=== PATIENT | male | born 1945 | race Caucasian/White ===

== ENCOUNTER 2017-09-30 13:47 | Inpatient (IN) | payer MEDICARE, MEDICAID ==
--- NOTE | 2017-09-30 16:32 | ED Physician Chart ---
ED Chief Complaint/HPI - Patient Information Date Seen:: 09/30/17 Time Seen:: 16:31 Chief Complaint:: HYPOTENSION and decreased alertness. History of Present Illness:: THIS 72 YEAR OLD MALE WAS SENT TO THE ER FROM HIS NURSING FACILITY DUE TO LOW BLOOD PRESSURE AND GENERALIZED WEAKNESS WHEN HE ARRIVED IN THE ER HE WAS AWAKE BUT UNRESPONSIVE TO VERBAL QUESTION AND UNABLE TO EXECUTE SIMPLE COMMANDS. HE WAS COMPLETELY NONVERBAL. HE WAS ACCOMPANIED BY PAPERWORK THAT NOTED A LOW BLOOD PRESSURE AND POOR RESPONSIVENESS. Allergies:: Allergies Allergy/AdvReac Type Severity Reaction Status Date / Time No Known Allergies Allergy Verified 09/30/17 15:47 The patient is unable to provide in HPI. When asked his name he says [place]. He does not follow simple commands such as open your eyes, open your mouth or squeeze my fingers. Vitals:: Vital Signs - 8 hr 09/30/17 09/30/17 15:47 16:04 Temp 99.4 F 98.7 F HR 126 113 RR 23 17 BP 104/57 121/70 O2 Sat % 96 98 ED Past Medical History - Past Medical History Past Medical History: HTN, DM, CAD, CHF, Dyslipidemia, Seizures, Dementia Family History: Heart disease, HTN, Other (encephalopathy. Hyperlipidemia. CHF. Atrial fibrillation. Hyperlipidemia.) Social History: Non Smoker, No Alcohol, No Drug Use, Care Facility Surgical History: PEG/GTube, other (surgical history unknown) Psychiatricy History: Schizophrenia, Bipolar, Dementia, Other (COPD, CHF, HTN, ENCEPHALOPATHY, ATRIAL FIBRILLATION, HYPERLIPIDEMIA) Family Medical History - Family Member Mother History Unknown: Yes ED Physical Exam - Physical Examination General/Constitutional: Well-developed, well-nourished Other Gen/Cons comments:: Patient appears to have chills and is minimally responsive to verbal commands and questions. Head: Atraumatic Eyes: Lids, conjuctiva normal, PERRL Skin: Nl inspection, No rash, No skin lesions, No ecchymosis, No lymphadenopathy ENMT: External ears, nose nl, Nasal exam nl Other ENMT comments:: DRY ORAL MUCOSA, GAG REFLEX INTACT Neck: No JVD, No bruit, No mass, No stridor Respiratory: Nl effort/Exclusion Other Respiratory comments:: PATIENT HAS BILATERAL RHONCHI IN THE ONE BASIS. ED Labs/Radiology/EKG Results - Radiology Results Results: Single view chest x-ray: Underlying cardiomegaly. No CHF. Increased interstitial lung markings diffusely. Calcifications within the aortic arch. No mediastinal widening. No pneumothorax. No areas of pulmonary consolidation or infiltrate. Impression: No acute cardiopulmonary findings. ED Assessment - Assessment General Assessment: CASE SUMMARY: THE 72-YEAR-OLD MALE WAS SENT TO THE EMERGENCY DEPARTMENT FROM HIS NURSING FACILITY ASSESSMENT OF HYPOTENSION. HE WAS HYPOTENSIVE UPON ARRIVAL RESUSCITATION WITH NORMAL SALINE WAS STARTED. THE GOAL WAS TO ADMINISTER 30 ML PER KILOGRAM OF NORMAL SALINE. THIS RESULTED IN A SIGNIFICANT INCREASE IN BLOOD PRESSURE. HE RETURNED TO THE NORMAL RANGE OF 120 OVER 90. BECAUSE OF THE HYPOTENSION WAS PRESUMED TO BE SEPSIS THERE WAS NO EVIDENCE OF FLUID LOSS OR BLEEDING. PATIENT WAS ALSO TREATED WITH CEFTRIAXONE AND A SET FOR MYSELF. PATIENT WAS ADMITTED TO A MEDICAL BED CONTINUATION OF RESUSCITATION AND SEARCH FOR THE SOURCE OF INFECTION. HIS CHEST X-RAY WAS CLEAR BUT THE LACTIC ACID WAS WITHIN THE SEPSIS RANGE. RESULTS OF THE URINALYSIS WERE PENDING AT THE TIME OF THE PATIENT'S ADMISSION. ADMITTED IN IMPROVED CONDITION. MDM DDX SEPSIS: NOT PNEUMONIA BASED ON EVALUATION OF THE CHEST X-RAY AND THE PHYSICAL EXAMINATION. NOT CELLULITIS BASED ON PHYSICAL EXAMINATION. NOT NECROTIZING FASCIITIS BASED ON PHYSICAL EXAMINATION. ALTHOUGH THE SOURCE OF INFECTION WAS NOT CONFIRMED IT WAS MY JUDGMENT THAT THE MOST LIKELY CAUSE WAS URINARY TRACT INFECTION. Critical Care Time: 60 MINUTES Excludes all billable procedures: Yes This condition life threatening/high prob of deterioration: Yes Assessment/Comments:: THE PATIENT ARRIVED HYPOTENSIVE AND FLUID RESUSCITATION WITH NORMAL SALINE WAS BEGUN IMMEDIATELY. THE GOAL WAS TO ADMINISTER 30 ML KILOGRAM. THE PATIENT RESPONDED IMMEDIATELY WITH INCREASE IN BLOOD PRESSURE AND ALERTNESS. PATIENT RECEIVED A TOTAL OF 2 L OF NORMAL SALINE PRIOR TO ADMISSION. ED Septic Shock - . Is Septic Shock (SBP<90, OR Lactate>4 mmol\L) present?: No - <6hrs of presentation: Vital Signs: Vital Signs - 8 hr 09/30/17 09/30/17 15:47 16:04 Temp 99.4 F 98.7 F HR 126 113 RR 23 17 BP 104/57 121/70 O2 Sat % 96 98 EKG Interpretation: No ST elevation ED Reassessment (Disposition) - Reassessment Reassessment Condition:: Improved - Diagnosis Diagnosis:: SEPSIS WITH HYPOTENSION (IMPROVE) - Patient Disposition Condition at Disposition:: Improved ED Discharge Plan - Patient Disposition Admit/Discharge/Transfer: Acute Care w/in this hosp Condition at Disposition: Improved
[2017-09-30 17:54] LABS: % BASOPHILS 0.4 % (0.0-2.0); % EOSINOPHILS 0.3 % (0.0-5.0); % LYMPHOCYTES 8.1 % (20.0-50.0); % MONOCYTES 8.2 % (2.0-10.0); HEMATOCRIT 43.1 % (41.0-60); HEMOGLOBIN 14.1 gm/dL (12-16); LYMPHOCYTE ABSOLUTE 0.8 Th/cmm (1.5-3.0); MEAN CELL VOLUME 97.5 fl (80-99); MEAN CORPUSCULAR HEMOGLOBIN 31.8 pg (27.0-31.0); MEAN CORPUSCULAR HGB CONC 32.6 pg (28.0-36.0); MEAN PLATELET VOLUME 11.4 fl; MONOCYTE ABSOLUTE 0.8 Th/cmm (0.3-1.0); NEUTROPHILE ABSOLUTE 8.7 Th/cmm (1.8-8.0); PLATELET COUNT 233 Th/cmm (150-400); RED BLOOD COUNT 4.42 Mil/cmm (3.80-5.80); WHITE BLOOD COUNT 10.3 Th/cmm (4.8-10.8)
[2017-09-30] MEDS ORDERED: Sodium Chloride 0.9% 1,000 ML IV ONE ×3 (17:56→22:48)
[2017-09-30 18:15] LABS: ALB/GLOB RATIO 0.9 (1.0-1.8); ALBUMIN 3.7 gm/dL (4.2-5.5); ALKALINE PHOSPHATASE 99 U/L (34-104); ANION GAP 18.6 (7.0-16.0); BILIRUBIN,TOTAL 0.4 mg/dL (0.3-1.0); BUN - UREA NITROGEN 26 mg/dL (7-25); CALCIUM SERUM 9.6 mg/dL (8.6-10.3); CARBON DIOXIDE 20.2 mEq/L (21.0-31.0); CHLORIDE 106 mEq/L (98-107); CREATININE - SERUM 1.3 mg/dL (0.7-1.3); GLUCOSE 149 mg/dL (70-105); POTASSIUM SERUM 3.8 mEq/L (3.5-5.1); SGOT 26 U/L (13-39); SGPT/ALT 16 U/L (7-52); SODIUM SERUM 141 mEq/L (136-145); TOTAL PROTEIN,SERUM 7.7 gm/dL (6.0-8.3)
[2017-09-30 18:47] LABS: URINE MICROSCOPIC INDICATED? YES; URINE SOURCE RANDOM
[2017-09-30 18:48] LABS: URINE BILIRUBIN NEGATIVE (NEGATIVE); URINE BLOOD LARGE (NEGATIVE); URINE GLUCOSE (UA) NEGATIVE (NEGATIVE); URINE KETONE TRACE mg/dL (NEGATIVE); URINE LEUKOCYTE ESTERASE NEGATIVE (NEGATIVE); URINE NITRATE NEGATIVE (NEGATIVE); URINE PH 5.5 (4.6 - 8.0); URINE PROTEIN TRACE mg/dL (NEGATIVE); URINE UROBILINOGEN 0.2 E.U./dL (0.2 - 1.0)
[2017-09-30] MEDS ORDERED: Ciprofloxacin 400mg Premix PB 400 MG/200 ML BAG IV ONE ×2 (18:48→19:57)
[2017-09-30 18:50] LABS: URINE COLOR YELLOW
[2017-09-30 18:51] LABS: URINE CLARITY HAZY (CLEAR)
[2017-09-30 18:54] LABS: URINE BACTERIA OCCASIONAL /hpf (NONE SEEN); URINE EPITHELIAL CELLS RARE /lpf (FEW); URINE WBC 0-2 /hpf (0-5)
[2017-09-30] MEDS ORDERED: cefTRIAXone 2 GM in Sodium Chloride 0.9% 100 ML IV ONE (19:47)
[2017-09-30] MEDS ORDERED: metroNIDAZOLE 500mg/NS 100mL 500 MG/100 ML BAG IV ONE ×2 (21:28→21:34)
[2017-09-30 22:23] LABS: ALB/GLOB RATIO 0.9 (1.0-1.8); ALBUMIN 3.6 gm/dL (4.2-5.5); BILIRUBIN,DIRECT 0.1 mg/dL (0.0-0.2); BILIRUBIN,TOTAL 0.4 mg/dL (0.3-1.0); TOTAL PROTEIN,SERUM 7.7 gm/dL (6.0-8.3)
--- NOTE | 2017-09-30 23:09 | ER Physician Documentation ---
DATE OF SERVICE: 09/30/2017 ADDENDUM HISTORY OF PRESENT ILLNESS: A 72-year-old male patient. Dr. Vigil was here until about close to 8 o'clock and he has done a partial workup and treatment on this patient, more is needed to be done and I came on duty at 7 o'clock sharp, a minute or two before that and the patient's were gradually seen one by one and this patient had lactic acidosis septicemia. The exact cause of the lactic acidosis and the patient had a temperature of 102 degrees Fahrenheit and the exact etiology is not seen. The back shows some area of redness on the right lateral aspect. The patient has some redness over the heels, one needs to rule out if the patient has any evidence of any osteomyelitis into the ankles and that may need to be ruled out by getting an MRI to be done, but we will leave it to the primary care doctor of this patient. The patient was examined. All the history, etc., was already done by Dr. Vigil. I got the lab results showing 10.3 as white count, hemoglobin to be 14.1, hematocrit 43.1, platelet count to be 233,000, neutrophils 83, lymphocytes 8.1, monocytes 8.2, eosinophils 0.3, and basophils 0.4. The patient had a large amount of blood in the urine and I am not sure where the blood came from, whether it was traumatic or whether he was trying to pull it, or whether it got pulled up and leukocyte, nitrite, and leukocyte esterase were all found to be negative. WBCs were 10-25, so the patient definitely has some degree of urinary tract infection. The first set of lactic acid was 5.85 and then the four subsequent ones came down to 2.33. Then 2 liters of fluid were given, 500 mL more has been ordered by me and then 125 mL an hour and Dr. Vigil has given ceftriaxone and Cipro, both covering gram-negative organisms and Flagyl was added by me to cover anaerobic organism and to cover for gram-positive organism. Vancomycin has been given. So, I do not think that the patient would need four antibiotics to be given. Either ceftriaxone or Cipro can be given. Cipro would be better. Cipro, Flagyl, and vancomycin could be given and any other antibiotic that the patient's primary care physician decides to be given, will be given to the patient. The patient has some Alzheimer's disease. The patient has been on Lipitor. The patient has been on Depakene 500 mg 10 mL p.o. 3 times a day for a seizure disorder, lactulose 20 grams that means 30 mL three times a day, multivitamin, vitamin C, Cordarone 20 mg p.o. daily, and one thing to note Cordarone is a liver toxic drug, so we will get the liver function panel done and sometimes the patient can in a few days with a liver toxicity secondary to Cordarone, so that is to be taken into consideration. The patient also has atrial fibrillation and converts to a sinus rhythm with atrial fibrillation. I believe we will stop the Cordarone at the present moment and substitute with Cardizem, Cordarone to be stopped, and ammonia level and valproic acid level monthly second Saturday. I saw the rhythm strips that changed from sinus to atrial fibrillation. The patient had some lab workup done. At one point, the temperature was 102, few minutes ago, temperature was 99.4 when the patient came here at 1348 hours, and now it is about 9:35 p.m., which is 21:35 p.m. showing the temperature to be 102. When he came, it was 99.4, pulse is 126, respirations 23, blood pressure 104/51, and oxygen saturation was 96%. The patient's other histories were essentially found to be benign and negative. The patient is a full code, according to the notes, it came with the patient. The patient is uncommunicative, hence no history can be obtained other than whatever came with the patient. The patient's paper on physical exam, the patient is of the stated age, uncommunicative, shaking, nervous, and on palpation of the abdomen, one can see that he is feeling some pain whether he has some peritonitis in the belly because the patient had a previous history of G-tube and a part of the G-tube site is partially open suggesting that the patient may have some peritonitis and hence peritonitis need to be ruled out, IR or somebody to do a peritoneal tap to see if there are any organisms. MRSA swab needs to be done. Vitamin D deficiency was detected and the patient should get some vitamin D. Valproic acid level was 54, that is found to be low. More valproic acid will be needed for him. For his seizure level, ammonia level is 38.6. So, we will get some more tests to be done at the present moment and then when we get more lab results we will let you know. JOB# [id number]
[2017-09-30] MEDS ORDERED: Ciprofloxacin 200mg Premix PB 200 MG/100 ML BAG IV SCH (23:45)
[2017-09-30] MEDS ORDERED: cefTRIAXone 2 GM in Sodium Chloride 0.9% 100 ML IV SCH (23:45)
[2017-09-30] MEDS ORDERED: cefTRIAXone 1 GM in Sodium Chloride 0.9% 50 ML IV SCH (23:45)
[2017-10-01] MEDS ORDERED: metroNIDAZOLE 500mg/NS 100mL 500 MG/100 ML BAG IV SCH
[2017-10-01] MEDS ORDERED: Influenza Vaccine 0.5 mL Syr IM ONE (01:43)
[2017-10-01] MEDS ORDERED: Pneumococcal Vaccine 0.5 mL Vial IM ONE (01:43)
[2017-10-01] MEDS: metroNIDAZOLE 500mg/NS 100mL 500 MG/100 ML BAG IV SCH ×3 (05:25→17:49)
--- NOTE | 2017-10-01 06:43 | History and Physical ---
History of Present Illness - HPI Chief Complaint: hypotension, decreased alertness HPI: 72y/o male who was transferred to [facility] ER from SNF for decreased wakefulness, increased fatigue and hypotension. Patient has a past medical history of the following: parkinson's disease, hyperlipidemia, seizure disorder, atrial fibrillation, g tube placement, hypertension, diabetes mellits , CAD, CHF, dyslipidemia, encephalopathy, pacemaker placement, schizophrenia, bipolar disorder, dementia While in the ER, initial labwork revealed lactic acid 5.85 WBC 10.3 H/H 14.1/43.1 platelets 233K N83 L8 M8 E0.3 B0.4 Na 141 K 3.8 Bun/Cr 26/1.3 Patient was subsequently admitted for possible sepsis vs urosepsis, lactic acidosis, hematuria. Vital Signs: Last Vital Signs Temp 99.0 F 10/01/17 05:00 Pulse 52 10/01/17 05:00 Resp 16 10/01/17 05:00 BP 127/54 10/01/17 05:00 Pulse Ox 97 10/01/17 05:00 Past Medical History Cardiovascular: Report: AFIB, CAD, CHF, HTN, Hyperlipidemia Pulmonary: Report: No Pertinent Hx MOLDER INFLATED BALL: Report: Dementia, Other (Parkinson's, Encephalopathy) GI: Report: Other (dysphagia, S/P g tube placement) Psych: Report: Bipolar, Depression, Schizophrenia Musculoskeletal: Report: No Pertinent Hx Rheumatologic: Report: No pertinent Hx Infectious Disease: Report: No Pertinent Hx Renal/: Report: No Pertinent Hx Endocrine: Report: Diabetes Dermatology: Report: No Pertinent Hx - Past Surgical History Past Surgical History: Other (pacemaker placement, gtube placement) Family Medical History - Family Member Mother History Unknown: Yes Social History Smoke: No Alcohol: None Drugs: None Lives: Alone - Medications Home Medications: Home Medication Medication Instructions Recorded Type Amino Acids/Protein Hydrolys 30 ml PO BID 09/30/17 History [Pro-Stat Sugar Free 887 ml] Amiodarone [Cordarone] 200 mg PO DAILY 09/30/17 History Ascorbic Acid [Vitamin C] 500 mg PO DAILY 09/30/17 History Aspirin EC [Ecotrin] 81 mg PO DAILY 09/30/17 History Atorvastatin Calcium [Lipitor] 10 mg PO HS 09/30/17 History Donepezil Hcl [Aricept] 5 mg PO HS 09/30/17 History Lactulose 20 gm PO TID 09/30/17 History Multivitamin w/ Minerals 1 tab PO DAILY 09/30/17 History [Theragran M] Valproic Acid (As Sodium Salt) 500 mg PO TID 09/30/17 History [Depakene] - Allergies Allergies/Adverse Reactions: Allergies Allergy/AdvReac Type Severity Reaction Status Date / Time No Known Allergies Allergy Verified 09/30/17 15:47 Review of Systems - Review of Systems Constitutional: Report: No Significant Eyes: Report: No Significant ENT: Report: No Significant Respiratory: Report: No Significant Cardiovascular: Report: No Significant Gastrointestinal: Report: No Significant Genitourinary: Report: No Significant Musculoskeletal: Report: No Significant Skin: Report: No Significant Neurological: Report: No Significant Physical Exam - Physical Exam HEENT: Report: Ears Nose Throat within normal limits, Pharnyx within normal limits Neck: Report: Within normal limits Cardiovascular Systems: Report: +s1/s2 noted, Regular, Rate and Rhythm Respiratory: Report: Breath Sounds are within normal limits, Clear to Auscultation of lung yoo Abdomen: Report: Non-tender to palpation. Denies: Guarding - Assessment Assessment: Current Active Problems Problem Status Onset HYPOTENSIVE EPISODE WITH ALOC Acute Sepsis versus Urosepsis lactic acidosis hematuria posisble UTI Parkinson's Disease hyperlipidemia seizure disorder atrial fibrillation S/p G tube placement HTN DM CAD CHF dyslipidemia encephalopathy S/p pacemaker placement Schizophrenia Bipolar Disorder Dementia - Plan Plan: Blood Cultures Urine C&S ID Consult Dr Marlon Grewal Cardiology Consult Dr. Mikal Grewal ECHO CBC,CMP,TSH,BNP,Ammonia level Will continue home meds.
[2017-10-01 07:12] LABS: ANION GAP 9.2 (7.0-16.0); BUN - UREA NITROGEN 19 mg/dL (7-25); CALCIUM SERUM 8.2 mg/dL (8.6-10.3); CARBON DIOXIDE 22.1 mEq/L (21.0-31.0); CHLORIDE 113 mEq/L (98-107); CREATININE - SERUM 0.8 mg/dL (0.7-1.3); GLUCOSE 88 mg/dL (70-105); POTASSIUM SERUM 4.3 mEq/L (3.5-5.1); SODIUM SERUM 140 mEq/L (136-145)
[2017-10-01 07:40] LABS: HEMOGLOBIN 11.6 gm/dL (12-16); MEAN CELL VOLUME 96.1 fl (80-99); MEAN CORPUSCULAR HGB CONC 34.3 pg (28.0-36.0); WHITE BLOOD COUNT 13.3 Th/cmm (4.8-10.8)
[2017-10-01 07:41] LABS: % EOSINOPHILS 1.3 % (0.0-5.0); % LYMPHOCYTES 20.9 % (20.0-50.0); % MONOCYTES 9.8 % (2.0-10.0); BASOPHILE ABSOLUTE 0.1 Th/cumm (0-0.2); EOSINOPHILE ABSOLUTE 0.2 Th/cmm (0.1-0.4); HEMATOCRIT 33.7 % (41.0-60); LYMPHOCYTE ABSOLUTE 2.8 Th/cmm (1.5-3.0); MEAN PLATELET VOLUME 9.9 fl; MONOCYTE ABSOLUTE 1.3 Th/cmm (0.3-1.0); NEUTROPHILE ABSOLUTE 8.9 Th/cmm (1.8-8.0); PLATELET COUNT 203 Th/cmm (150-400); RED CELL DISTRIBUTION WIDTH 13.8 % (11.5-20.0)
--- NOTE | 2017-10-01 08:33 | Diagnostic Imaging Report ---
CHEST X-RAY: AP view INDICATION: Shortness of breath, possible sepsis COMPARISON: None FINDINGS: Increased interstitial lung markings are seen with increased left lower lung zone linear markings. No focal consolidation or effusions. There is a 3 mm calcified granuloma of the right apex. Heart size is normal. Degenerative changes of spine are noted. IMPRESSION: Increased left lower lung zone linear markings which may be due to subsegmental atelectasis or scarring, however, faint infiltrate cannot be excluded. Increased interstitial lung markings nonspecific and may be chronic. A marginal degree of congestion cannot be completely excluded. Clinical correlation is recommended. Atherosclerotic vascular disease.
[2017-10-01] MEDS ORDERED: Non-Formulary Item 1 EA (Amino Acids/Protein Hydrolys [Pro-Stat Sugar Free Liquid] 30 ML) PO SCH (09:00)
[2017-10-01] MEDS: Lactulose 10 Gm/15 mL 30mL UDC PO SCH ×3 (10:04→20:36)
[2017-10-01] MEDS: Multivitamin w/ Minerals Tab PO SCH (10:04)
[2017-10-01 13:22] LABS: INR 1.08 (0.5-1.4); PROTHROMBIN TIME (TEST) 11.2 SECONDS (9.5-11.5)
--- NOTE | 2017-10-01 19:07 | Cardiology ---
10/01/2017 ECHOCARDIOGRAM REPORT The patient of Dr. Valente Caballero. M-MODE ECHOCARDIOGRAM: Mitral valve: Anterior leaflet of mitral valve shows normal excursion, EF velocity. Posterior leaflet of the mitral valve shows normal excursion. Left ventricle posterior wall shows normal thickness excursion. Interventricular septum showed normal thickness excursion. Ejection fraction 60%. Left atrium normal. Aortic root shows normal dimension, normal excursion of aortic leaflets. CONCLUSION: Normal M-mode echo, ejection fraction 60%. 2D ECHO: Long axis view showed normal sized left ventricle with normal wall motion. Mitral valve shows normal excursion. Left atrium normal. Aortic root shows normal dimension, normal excursion of aortic leaflets. Short axis view of mitral valve normal. Short axis view of aortic valve normal. Apical four chamber view showed normal sized left ventricle, left atrium, right ventricle, right atrium, tricuspid and mitral valve. Ejection fraction 60%. CONCLUSION: Normal 2D echo, ejection fraction 60%. Doppler study shows normal antegrade flow across the mitral, tricuspid, and aortic valve. JOB# [id number]
[2017-10-01] MEDS ORDERED: cefTRIAXone 2 GM in Sodium Chloride 0.9% 100 ML IV SCH (20:00)
[2017-10-01] MEDS: Atorvastatin Calcium 10 MG TAB PO SCH (20:36)
[2017-10-01] MEDS ORDERED: Ciprofloxacin 200mg Premix PB 200 MG/100 ML BAG IV SCH (21:00)
--- NOTE | 2017-10-01 22:29 | Consultation ---
Consult Note - Consult Note Service Date: 10/01/17 Referring Physician: Valente Caballero Consult Note: PHYSICIAN Consultation Note: Date of Admission: 09/30/17 Purpose of Consultation: Sepsis. Chief Complaint: Patient SERVANDO REAL was admitted to location Medical/Surgical Unit I with SEPTICEMIA,SEPTIC SHOCK. History of Present Illness: 72 year old male with history of DM2, hyperlipidemia, Dementia, schizophrenia, bipolar d/o, parkinson's disease, HTN, atrial fibrillation, CAD, CHF, dyslipidemia, encephalopathy, pacemaker placement admitted for altered mental status with hypotension. On initial evaluation, his temperature was 99.4 degree F and it went up to 102.7 degree F. His WBC Count was 10,300 and it went up to 13,300. His lactic acid was also elevated, up to 5.85. Fluid resuscitation and IV antibiotic. and he did well. sepsis w/u was performed and ID consult was called for antibiotic management. Past Medical History: DM2, hyperlipidemia, Dementia, schizophrenia, bipolar d/o, parkinson's disease , HTN, atrial fibrillation, CAD, CHF, dyslipidemia, encephalopathy, pacemaker placement Diagnoses SEPSIS, UNSPECIFIED ORGANISM (09/30/17) TYPE 2 DIABETES MELLITUS WITHOUT COMPLICATIONS (09/30/17) HYPERLIPIDEMIA, UNSPECIFIED (09/30/17) ACIDOSIS (09/30/17) DEMENTIA IN OTH DISEASES CLASSD ELSWHR W/O BEHAVRL DISTURB (09/30/17) UNSPECIFIED DEMENTIA WITHOUT BEHAVIORAL DISTURBANCE (09/30/17) SCHIZOPHRENIA, UNSPECIFIED (09/30/17) BIPOLAR DISORDER, UNSPECIFIED (09/30/17) PARKINSON'S DISEASE (09/30/17) EPILEPSY, UNSP, NOT INTRACTABLE, WITHOUT STATUS EPILEPTICUS (09/30/17) ENCEPHALOPATHY, UNSPECIFIED (09/30/17) ESSENTIAL (PRIMARY) HYPERTENSION (09/30/17) ATHSCL HEART DISEASE OF [place] CORONARY ARTERY W/O ANG PCTRS (09/30/17) UNSPECIFIED ATRIAL FIBRILLATION (09/30/17) PERITONITIS, UNSPECIFIED (09/30/17) URINARY TRACT INFECTION, SITE NOT SPECIFIED (09/30/17) GASTROSTOMY STATUS (09/30/17) PRESENCE OF CARDIAC PACEMAKER (09/30/17) Allergies Allergy/AdvReac Type Severity Reaction Status Date / Time No Known Allergies Allergy Verified 09/30/17 15:47 Vital Signs Temp 98.6 F 10/01/17 20:00 Pulse 67 10/01/17 20:00 Resp 17 10/01/17 20:00 BP 125/48 10/01/17 20:00 Pulse Ox 95 10/01/17 20:00 Intake & Output 10/01/17 10/01/17 10/02/17 06:59 18:59 06:59 Intake Total 3750 370 Balance 3750 370 Weight (lbs) 78.97 kg 78.925 kg Intake: Intake, IV Amount 3750 250 Sodium Chloride 0.9% 1, 1000 000 ml @ Wide Open IV . Q0M ONE Rx#:[id number] Vancomycin HCl 1 gm In 250 Sodium Chloride 0.9% 250 ml @ 165 mls/hr IV Q12H [facility] Rx#:[id number] Vancomycin HCl 1 gm In 250 Sodium Chloride 0.9% 250 ml @ 165 mls/hr IV X1 ONE Rx#:[id number] metroNIDAZOLE 500mg/NS 100 100mL 500 mg In 100 ml @ 100 mls/hr IV Q6HR [facility] Rx #:[id number] Oral 120 Laboratory Results - last 24 hr 10/01/17 10/01/17 10/01/17 06:07 06:07 06:46 WBC 13.3 H RBC 3.50 L Hgb 11.6 L Hct 33.7 L D MCV 96.1 MCH 33.0 H MCHC Differential 34.3 RDW 13.8 Plt Count 203 MPV 9.9 Neutrophils % 67.0 Lymphocytes % 20.9 Monocytes % 9.8 Eosinophils % 1.3 Basophils % 1.0 PT INR Sodium 140 Potassium 4.3 Chloride 113 H Carbon Dioxide 22.1 Anion Gap 9.2 BUN 19 Creatinine 0.8 Est GFR ( Amer) TNP Est GFR (Non-Af Amer) TNP BUN/Creatinine Ratio 23.8 Glucose 88 Whole Bld Lactic Acid 0.69 Calcium 8.2 L Ammonia B-Natriuretic Peptide TSH 10/01/17 10/01/17 10/01/17 06:46 06:46 06:46 WBC RBC Hgb Hct MCV MCH MCHC Differential RDW Plt Count MPV Neutrophils % Lymphocytes % Monocytes % Eosinophils % Basophils % PT INR Sodium Potassium Chloride Carbon Dioxide Anion Gap BUN Creatinine Est GFR ( Amer) Est GFR (Non-Af Amer) BUN/Creatinine Ratio Glucose Whole Bld Lactic Acid Calcium Ammonia 41 B-Natriuretic Peptide 198.0 H TSH 0.90 10/01/17 13:06 WBC RBC Hgb Hct MCV MCH MCHC Differential RDW Plt Count MPV Neutrophils % Lymphocytes % Monocytes % Eosinophils % Basophils % PT 11.2 INR 1.08 Sodium Potassium Chloride Carbon Dioxide Anion Gap BUN Creatinine Est GFR ( Amer) Est GFR (Non-Af Amer) BUN/Creatinine Ratio Glucose Whole Bld Lactic Acid Calcium Ammonia B-Natriuretic Peptide TSH Home Medication Medication Instructions Recorded Type Amino Acids/Protein Hydrolys 30 ml PO BID 09/30/17 History [Pro-Stat Sugar Free 887 ml] Amiodarone [Cordarone] 200 mg PO DAILY 09/30/17 History Ascorbic Acid [Vitamin C] 500 mg PO DAILY 09/30/17 History Aspirin EC [Ecotrin] 81 mg PO DAILY 09/30/17 History Atorvastatin Calcium [Lipitor] 10 mg PO HS 09/30/17 History Donepezil Hcl [Aricept] 5 mg PO HS 09/30/17 History Lactulose 20 gm PO TID 09/30/17 History Multivitamin w/ Minerals 1 tab PO DAILY 09/30/17 History [Theragran M] Valproic Acid (As Sodium Salt) 500 mg PO TID 09/30/17 History [Depakene] Current Medications Generic Name Dose Route Start Last Admin Trade Name Lenny PRN Reason Stop Dose Admin Amiodarone HCl 200 mg 10/01/17 09:00 10/01/17 10:03 Cordarone PO 11/30/17 08:59 200 mg DAILY [facility] Administration Ascorbic Acid 500 mg 10/01/17 09:00 10/01/17 10:03 Vitamin C PO 11/30/17 08:59 500 mg DAILY [facility] Administration Aspirin 81 mg 10/01/17 09:00 10/01/17 10:03 Ecotrin PO 11/30/17 08:59 81 mg DAILY [facility] Administration Atorvastatin Calcium 10 mg 10/01/17 21:00 10/01/17 20:36 Lipitor PO 11/30/17 20:59 10 mg HS [facility] Administration Protocol Donepezil HCl 5 mg 10/01/17 21:00 10/01/17 20:36 Aricept PO 11/30/17 20:59 5 mg HS [facility] Administration Ceftriaxone Sodium 2 gm/ 100 mls @ 100 mls/hr 10/01/17 20:00 10/01/17 20:35 Sodium Chloride IV 11/30/17 19:59 100 mls/hr Q24H [facility] Administration Metronidazole 500 mg in 100 mls @ 100 mls/hr 10/01/17 02:00 10/01/17 17:49 Flagyl IV 11/30/17 01:59 Not Given Q6HR [facility] Vancomycin HCl 1 gm/ Sodium 250 mls @ 165 mls/hr 10/01/17 10:00 10/01/17 22: 26 Chloride IV 11/30/17 09:59 165 mls/hr Q12H [facility] Administration Lactulose 20 gm 10/01/17 09:00 10/01/17 20:36 Cephulac PO 11/30/17 08:59 20 gm TID [facility] Administration Miscellaneous 1 ea 10/01/17 06:34 Vancomycin Iv Per Pharmacy 11/30/17 06:33 PRN PRN PROTOCOL Valproate Sodium 500 mg 10/01/17 10:00 10/01/17 20:36 Depakene PO 11/30/17 09:59 500 mg TID [facility] Administration Warfarin Sodium 1 ea 10/01/17 12:25 Coumadin Per Pharmacy 11/30/17 12:24 PRN PRN RX MONITORING Protocol Review of Systems: A 12 point ROS was reviewed with the pertinent positive and negatives noted in the HPI. Social History Smoking Status Unknown if ever smoked Family Medical History Family Medical History Start: 10/01/17 01: 00 Freq: ONCE Status: Active Document 10/01/17 01:00 JAGJIT (Rec: 10/01/17 01:43 JAGJIT FREEDMAN-[id number]) Family Medical History Mother History Unknown Yes Physical Exam: General: Comfortable, no t in any acute distress. well develoepd, and well nourished. HEENT: Head: NC NT. Oral cavilty moist, pink tongue. Eyes: pallor present. no icterus. Pupil PERRLA. EOMI. Neck: Supple, on JVD, no carotid bruit. Cardio: S1 and S2 WNL. no murmur, no gallop. Respiratory: Vesicualr breath sounds.No crackle no wheezing. Abdominal: Soft NT ND BS. No hepatosplenomegaly appreciated. Genital/Urinary: WNL. Extremities: NCCE. pulses are palpable in all 4 limbs. Neurological: Alert awake, oriented, mildly confused. Assessment: 1. Sepsis, septioc shock resolving. 2. Pneumonia. 3. Lactic acidosis, improved. 4. h/o DM2. 5. Schizophrenia. 6. Bipolar d/o. 7. Dementia. 8. Hypertension. 9. Hypertension, essential. 10. CAD. 11. Atrial fibrillation. Recommendations & Plan: Continue vanco IV, and flagyl. Will change ceftriaxone to cefepime. Follow up sepsis W/u. Thank you, Dr Valente Caballero for involving mein taking care of this patient. Signed, Marlon Grewal M.D. [id number]
[2017-10-02] MEDS: metroNIDAZOLE 500mg/NS 100mL 500 MG/100 ML BAG IV SCH ×4 (00:15→19:06)
[2017-10-02] MEDS: Cefepime 1 GM in Sodium Chloride 0.9% 50 ML IV SCH ×3 (04:24→21:43)
--- NOTE | 2017-10-02 05:51 | Consultation ---
DATE OF CONSULTATION: 10/01/2017 HISTORY AND PHYSICAL: This is a 72-year-old male patient who was transferred from [facility] because the patient was feeling weak, tired, hypotension. In the Emergency Room, the patient was found to have atrial fibrillation and hence Cardiology consult is requested. No history of PND, orthopnea. PAST MEDICAL HISTORY: Atrial fibrillation, Parkinson disease, hyperlipidemia, seizure disorder, hypertension, G-tube, protein calorie malnutrition, stable angina, congestive heart failure, diastolic dysfunction, chronic bipolar, schizophrenia, urinary tract infection, hematuria, dementia. FAMILY HISTORY: Unremarkable. SOCIAL HISTORY: No history of smoking, alcohol abuse. ALLERGIES: No known allergies. PHYSICAL EXAMINATION: VITAL SIGNS: Blood pressure on admission 90 systolic, at the present time 130/80, pulse 80 and irregular, respirations 28. HEAD: Normocephalic. No lumps or bumps. EYES: Pupils equal, reactive to light. Fundi show AV nicking. Sclerae white. Conjunctivae pink. NECK: Carotid 2+. Normal upstroke. JVD flat. Thyroid not palpable. Lymph nodes not palpable. CHEST: Shows increased AP diameter. No kyphosis, scoliosis. LUNGS: Bilateral bronchovesicular breath sounds. Occasional wheeze. No rales. HEART: PMI fifth intercostal space with lateral to midclavicular line. S1 irregular. S2, S3, S4. Soft systolic murmur. ABDOMEN: Soft. Liver, spleen not palpable. No organomegaly. Bowel sounds active. NEUROLOGIC: No focal neurological deficit. EXTREMITIES: Peripheral pulses 2+. No pedal edema. CLINICAL IMPRESSION: Hypotension, urinary tract infection, atrial fibrillation, Parkinson disease, hyperlipidemia, seizure disorder, G-tube with protein calorie malnutrition, history of hypertension, stable angina, congestive heart failure, diastolic dysfunction, chronic bipolar, schizophrenia, urinary tract infection, hematuria, and dementia. PLAN: The patient to continue present care, IV fluids, IV antibiotics, echocardiogram and start the patient on anticoagulation. If the hematuria persists, we will stop the anticoagulation. JOB# [id number]
[2017-10-02 06:47] LABS: % BASOPHILS 0.8 % (0.0-2.0); % EOSINOPHILS 3.3 % (0.0-5.0); % LYMPHOCYTES 33.2 % (20.0-50.0); % MONOCYTES 12.4 % (2.0-10.0); % NEUTROPHILS 50.3 % (40.0-80.0); BASOPHILE ABSOLUTE 0.1 Th/cumm (0-0.2); EOSINOPHILE ABSOLUTE 0.3 Th/cmm (0.1-0.4); HEMATOCRIT 32.3 % (41.0-60); HEMOGLOBIN 10.7 gm/dL (12-16); LYMPHOCYTE ABSOLUTE 2.5 Th/cmm (1.5-3.0); MEAN CELL VOLUME 96.3 fl (80-99); MEAN CORPUSCULAR HGB CONC 33.2 pg (28.0-36.0); MEAN PLATELET VOLUME 9.2 fl; MONOCYTE ABSOLUTE 0.9 Th/cmm (0.3-1.0); NEUTROPHILE ABSOLUTE 3.8 Th/cmm (1.8-8.0); PLATELET COUNT 189 Th/cmm (150-400); RED BLOOD COUNT 3.36 Mil/cmm (3.80-5.80); RED CELL DISTRIBUTION WIDTH 13.9 % (11.5-20.0); WHITE BLOOD COUNT 7.6 Th/cmm (4.8-10.8)
[2017-10-02 06:56] LABS: INR 1.13 (0.5-1.4); PROTHROMBIN TIME (TEST) 11.9 SECONDS (9.5-11.5)
[2017-10-02 07:01] LABS: ALB/GLOB RATIO 0.9 (1.0-1.8); ALBUMIN 2.7 gm/dL (4.2-5.5); ALKALINE PHOSPHATASE 63 U/L (34-104); ANION GAP 7.9 (7.0-16.0); BILIRUBIN,TOTAL 0.2 mg/dL (0.3-1.0); BUN - UREA NITROGEN 13 mg/dL (7-25); CALCIUM SERUM 8.2 mg/dL (8.6-10.3); CARBON DIOXIDE 27.1 mEq/L (21.0-31.0); CHLORIDE 113 mEq/L (98-107); CREATININE - SERUM 0.7 mg/dL (0.7-1.3); GLUCOSE 87 mg/dL (70-105); SGOT 24 U/L (13-39); SGPT/ALT 13 U/L (7-52); SODIUM SERUM 144 mEq/L (136-145); TOTAL PROTEIN,SERUM 5.8 gm/dL (6.0-8.3)
[2017-10-02 08:10] LABS: IRON LC 31 ug/dL (38-169); TIBC (LC) 184 ug/dL (250-450); UIBC 153 ug/dL (111-343)
--- NOTE | 2017-10-02 08:29 | General Progress Note ---
Subjective - Review of Systems Service Date: 10/02/17 Subjective: Zahra was seen and examined today. Appears in good spirits. No complaints. Objective - Results Result Diagrams: 10/02/17 06:30 10/02/17 06:30 Recent Labs: Laboratory Last Values WBC 7.6 Th/cmm (4.8-10.8) 10/02/17 06:30 RBC 3.36 Mil/cmm (3.80-5.80) L 10/02/17 06:30 Hgb 10.7 gm/dL (12-16) L 10/02/17 06:30 Hct 32.3 % (41.0-60) L 10/02/17 06:30 MCV 96.3 fl (80-99) 10/02/17 06:30 MCH 32.0 pg (27.0-31.0) H 10/02/17 06:30 MCHC Differential 33.2 pg (28.0-36.0) 10/02/17 06:30 RDW 13.9 % (11.5-20.0) 10/02/17 06:30 Plt Count 189 Th/cmm (150-400) 10/02/17 06:30 MPV 9.2 fl 10/02/17 06:30 Neutrophils % 50.3 % (40.0-80.0) 10/02/17 06:30 Lymphocytes % 33.2 % (20.0-50.0) 10/02/17 06:30 Monocytes % 12.4 % (2.0-10.0) H 10/02/17 06:30 Eosinophils % 3.3 % (0.0-5.0) 10/02/17 06:30 Basophils % 0.8 % (0.0-2.0) 10/02/17 06:30 PT 11.9 SECONDS (9.5-11.5) H 10/02/17 06:30 INR 1.13 (0.5-1.4) 10/02/17 06:30 Sodium 144 mEq/L (136-145) 10/02/17 06:30 Potassium 4.0 mEq/L (3.5-5.1) 10/02/17 06:30 Chloride 113 mEq/L (98-107) H 10/02/17 06:30 Carbon Dioxide 27.1 mEq/L (21.0-31.0) 10/02/17 06:30 Anion Gap 7.9 (7.0-16.0) 10/02/17 06:30 BUN 13 mg/dL (7-25) 10/02/17 06:30 Creatinine 0.7 mg/dL (0.7-1.3) 10/02/17 06:30 Est GFR ( Amer) TNP 10/02/17 06:30 Est GFR (Non-Af Amer) TNP 10/02/17 06:30 BUN/Creatinine Ratio 18.6 10/02/17 06:30 Glucose 87 mg/dL (70-105) 10/02/17 06:30 Whole Bld Lactic Acid 0.69 mmol/L (0.60-1.99) 10/01/17 06:46 Calcium 8.2 mg/dL (8.6-10.3) L 10/02/17 06:30 Magnesium 2.2 mg/dL (1.9-2.7) 09/30/17 14:15 Iron 31 ug/dL (38-169) L 10/01/17 06:07 TIBC 184 ug/dL (250-450) L 10/01/17 06:07 Iron Saturation 17 % (15-55) 10/01/17 06:07 Unsaturated IBC 153 ug/dL (111-343) 10/01/17 06:07 Total Bilirubin 0.2 mg/dL (0.3-1.0) L 10/02/17 06:30 Direct Bilirubin 0.10 mg/dL (0.0-0.2) 09/30/17 14:15 AST 24 U/L (13-39) 10/02/17 06:30 ALT 13 U/L (7-52) 10/02/17 06:30 Alkaline Phosphatase 63 U/L (34-104) 10/02/17 06:30 Ammonia 41 umol/L (16-53) 10/01/17 06:46 B-Natriuretic Peptide 198.0 pg/mL (5.0-100.0) H 10/01/17 06:46 Total Protein 5.8 gm/dL (6.0-8.3) L 10/02/17 06:30 Albumin 2.7 gm/dL (4.2-5.5) L 10/02/17 06:30 Globulin 3.1 gm/dL 10/02/17 06:30 Albumin/Globulin Ratio 0.9 (1.0-1.8) L 10/02/17 06:30 Triglycerides 140 mg/dL (<150) 09/30/17 14:15 Cholesterol 163 mg/dL (<200) 09/30/17 14:15 LDL Cholesterol Direct 112 mg/dL (75-193) 09/30/17 14:15 HDL Cholesterol 40 mg/dL (23-92) 09/30/17 14:15 Lipase 26 U/L (11-82) 09/30/17 14:15 TSH 0.90 uIU/ml (0.34-5.60) 10/01/17 06:46 Urine Source RANDOM 09/30/17 18:15 Urine Color YELLOW 09/30/17 18:15 Urine Clarity HAZY (CLEAR) 09/30/17 18:15 Urine pH 5.5 (4.6 - 8.0) 09/30/17 18:15 Ur Specific [place] 1.020 (1.005-1.030) 09/30/17 18:15 Urine Protein TRACE mg/dL (NEGATIVE) 09/30/17 18:15 Urine Glucose (UA) NEGATIVE mg/dL (NEGATIVE) 09/30/17 18:15 Urine Ketones TRACE mg/dL (NEGATIVE) 09/30/17 18:15 Urine Blood LARGE (NEGATIVE) H 09/30/17 18:15 Urine Nitrate NEGATIVE (NEGATIVE) 09/30/17 18:15 Urine Bilirubin NEGATIVE (NEGATIVE) 09/30/17 18:15 Urine Urobilinogen 0.2 E.U./dL (0.2 - 1.0) 09/30/17 18:15 Ur Leukocyte Esterase NEGATIVE (NEGATIVE) 09/30/17 18:15 Urine RBC 10-25 /hpf (0-5) H 09/30/17 18:15 Urine WBC 0-2 /hpf (0-5) 09/30/17 18:15 Ur Epithelial Cells RARE /lpf (FEW) 09/30/17 18:15 Urine Bacteria OCCASIONAL /hpf (NONE SEEN) 09/30/17 18:15 - Physical Exam Vitals and I&O: Vital Signs Temp 98.4 F 10/02/17 04:00 Pulse 77 10/02/17 07:38 Resp 18 10/02/17 07:38 BP 119/76 10/02/17 04:00 Pulse Ox 97 10/02/17 07:38 Intake & Output 10/01/17 10/02/17 10/02/17 18:59 06:59 18:59 Intake Total 470 100 Output Total 400 Balance 470 -300 Weight (lbs) 78.925 kg 78.698 kg Intake: Intake, IV Amount 350 100 Vancomycin HCl 1 gm In 250 Sodium Chloride 0.9% 250 ml @ 165 mls/hr IV Q12H [facility] Rx#:[id number] metroNIDAZOLE 500mg/NS 100 100 100mL 500 mg In 100 ml @ 100 mls/hr IV Q6HR [facility] Rx #:[id number] Oral 120 Output: Urine 400 Active Medications: Current Medications Amiodarone HCl (Cordarone) 200 mg PO DAILY [facility] Stop: 11/30/17 08:59 Last Admin: 10/01/17 10:03 Dose: 200 mg Ascorbic Acid (Vitamin C) 500 mg PO DAILY [facility] Stop: 11/30/17 08:59 Last Admin: 10/01/17 10:03 Dose: 500 mg Aspirin (Ecotrin) 81 mg PO DAILY [facility] Stop: 11/30/17 08:59 Last Admin: 10/01/17 10:03 Dose: 81 mg Atorvastatin Calcium (Lipitor) 10 mg PO [facility] PRN Reason: Protocol Stop: 11/30/17 20:59 Last Admin: 10/01/17 20:36 Dose: 10 mg Donepezil HCl (Aricept) 5 mg PO HS [facility] Stop: 11/30/17 20:59 Last Admin: 10/01/17 20:36 Dose: 5 mg Metronidazole (Flagyl) 500 mg in 100 mls @ 100 mls/hr IV Q6HR [facility] Stop: 11/30/17 01:59 Last Admin: 10/02/17 05:24 Dose: 100 mls/hr Vancomycin HCl 1 gm/ Sodium (Chloride) 250 mls @ 165 mls/hr IV Q12H [facility] Stop: 11/30/17 09:59 Last Admin: 10/01/17 22:26 Dose: 165 mls/hr Cefepime HCl 1 gm/ Sodium (Chloride) 50 mls @ 100 mls/hr IV Q8HR [facility] Stop: 12/01/17 04:59 Last Admin: 10/02/17 04:24 Dose: 100 mls/hr Lactulose (Cephulac) 20 gm PO TID [facility] Stop: 11/30/17 08:59 Last Admin: 10/01/17 20:36 Dose: 20 gm Miscellaneous (Vancomycin Iv Per Pharmacy) 1 [facility] PRN PRN PRN Reason: PROTOCOL Stop: 11/30/17 06:33 Valproate Sodium (Depakene) 500 mg PO TID [facility] Stop: 11/30/17 09:59 Last Admin: 10/01/17 20:36 Dose: 500 mg Warfarin Sodium (Coumadin Per Pharmacy) 1 [facility] PRN PRN; Protocol PRN Reason: RX MONITORING Stop: 11/30/17 12:24 General: Alert, Oriented x3 HEENT: Atraumatic, PERRLA, EOMI Neck: Supple Cardiovascular: Regular rate, Normal S1, Normal S2 Lungs: Clear to auscultation Abdomen: Bowel sounds, Soft Extremities: no Clubbing, no Cyanosis, no Edema Neurological: Normal gait, Normal speech Assessment/Plan - Problem List Patient Problems: All Active Problems HYPOTENSIVE EPISODE WITH ALOC (Acute) - Assessment Assessment: Current Active Problems Problem Status Onset HYPOTENSIVE EPISODE WITH ALOC Acute Sepsis versus Urosepsis lactic acidosis hematuria posisible UTI Parkinson's Disease hyperlipidemia seizure disorder atrial fibrillation S/p G tube placement HTN DM CAD CHF dyslipidemia encephalopathy S/p pacemaker placement Schizophrenia Bipolar Disorder Dementia - Plan Plan: Blood Cultures Urine C&S continue current Antibiotic therapy per ID. ECHO CBC,CMP,TSH,BNP,Ammonia level Nutritional Asmnt/Malnutr-PDOC - Dietary Evaluation Malnutrition Findings (Please click <Entered> for more info): Nutritional Asmnt/Malnutrition Start: 10/01/17 15: 59 Text: Status: Complete Freq: Document 10/01/17 15:59 LCHENG (Rec: 10/01/17 16:27 [email or web address] [email or web address]) Nutritional Asmnt/Malnutrition Patient General Information Nutritional Screening High Risk Consult Diagnosis septicemia, septic shock Pertinent Medical Hx/Surgical Hx afib, CAD, CHF, HTN, hyperlipidemia, dementia, parkingson's, encephalopathy, dysphagia, s/p g tube placement, bipolar, depression , schizophrenia, DM Subjective Information Pt seen sleeping at time of visit x 2 times. Per nurse note, pt was alert but confused. Pt consumed 50% of braekfast and 25% of lunch today per EMR. Current Diet Order/ Nutrition Support [facility] soft chopped Pertinent Medications vit C, cephulac, vancomycin Pertinent Labs 10/01 Cl 113, Ca 8.2, glucose 88 Nutritional Hx/Data Height 1.83 m Height (Calculated Centimeters) 182.9 Current Weight (lbs) 78.925 kg Weight (Calculated Kilograms) 78.9 Weight (Calculated Grams) 33746.1 [place] Body Weight 178 Body Mass Index (BMI) 23.6 Weight Status Approriate GI Symptoms GI Symptoms None Last BM none Difficult in: None Skin Integrity/Comment: bruise, skin tear, pressure area Tony score 15 Current %PO Poor (25-49%) Estimated Nutritional Goals BEE in Kcals: Using Current wt Calories/Kcals/Kg 25-30 Kcals Calculated 4176-9338 Protein: Using Current wt Protein g/k-1.2 Protein Calculated 79-94 Fluid: ml 1974-2370ml (1ml/kcal) Nutritional Problem 2. Problem Problem inadequate food intake Etiology possible weakness and poor appetite Signs/Symptoms: PO intake 25-50% 1. Problem Problem increased nutrition needs ( calorie and protein) Etiology increased metabolic demand Signs/Symptoms: dx of septicemia and wound Intervention/Recommendation Comments 1. Continue with current diet as ordered. If PO intake continue low, consider oral supplements. 2. Monitor PO intake, wt, labs and skin integrity 3. F/U as high risk in 2-3 days, 10/03-10/04 Expected Outcomes/Goals Expected Outcomes/Goals 1. PO intake to meet at least 75% of nutritional needs. 2. Wt stability, skin to remain intact, labs to approach WNL.
[2017-10-02] MEDS: Lactulose 10 Gm/15 mL 30mL UDC PO SCH ×3 (09:23→22:02)
[2017-10-02] MEDS: Multivitamin w/ Minerals Tab PO SCH (09:25)
--- NOTE | 2017-10-02 15:50 | Infectious Disease Prog Note ---
Infectious Disease Subjective - Review of Systems Service Date: 10/02/17 Subjective: There is no new change, no fever. Infectious Disease Objective - Results Result Diagrams: 10/02/17 06:30 10/02/17 06:30 Recent Labs: Laboratory Last Values WBC 7.6 Th/cmm (4.8-10.8) 10/02/17 06:30 RBC 3.36 Mil/cmm (3.80-5.80) L 10/02/17 06:30 Hgb 10.7 gm/dL (12-16) L 10/02/17 06:30 Hct 32.3 % (41.0-60) L 10/02/17 06:30 MCV 96.3 fl (80-99) 10/02/17 06:30 MCH 32.0 pg (27.0-31.0) H 10/02/17 06:30 MCHC Differential 33.2 pg (28.0-36.0) 10/02/17 06:30 RDW 13.9 % (11.5-20.0) 10/02/17 06:30 Plt Count 189 Th/cmm (150-400) 10/02/17 06:30 MPV 9.2 fl 10/02/17 06:30 Neutrophils % 50.3 % (40.0-80.0) 10/02/17 06:30 Lymphocytes % 33.2 % (20.0-50.0) 10/02/17 06:30 Monocytes % 12.4 % (2.0-10.0) H 10/02/17 06:30 Eosinophils % 3.3 % (0.0-5.0) 10/02/17 06:30 Basophils % 0.8 % (0.0-2.0) 10/02/17 06:30 PT 11.9 SECONDS (9.5-11.5) H 10/02/17 06:30 INR 1.13 (0.5-1.4) 10/02/17 06:30 Sodium 144 mEq/L (136-145) 10/02/17 06:30 Potassium 4.0 mEq/L (3.5-5.1) 10/02/17 06:30 Chloride 113 mEq/L (98-107) H 10/02/17 06:30 Carbon Dioxide 27.1 mEq/L (21.0-31.0) 10/02/17 06:30 Anion Gap 7.9 (7.0-16.0) 10/02/17 06:30 BUN 13 mg/dL (7-25) 10/02/17 06:30 Creatinine 0.7 mg/dL (0.7-1.3) 10/02/17 06:30 Est GFR ( Amer) TNP 10/02/17 06:30 Est GFR (Non-Af Amer) TNP 10/02/17 06:30 BUN/Creatinine Ratio 18.6 10/02/17 06:30 Glucose 87 mg/dL (70-105) 10/02/17 06:30 Whole Bld Lactic Acid 0.69 mmol/L (0.60-1.99) 10/01/17 06:46 Calcium 8.2 mg/dL (8.6-10.3) L 10/02/17 06:30 Magnesium 2.2 mg/dL (1.9-2.7) 09/30/17 14:15 Iron 31 ug/dL (38-169) L 10/01/17 06:07 TIBC 184 ug/dL (250-450) L 10/01/17 06:07 Iron Saturation 17 % (15-55) 10/01/17 06:07 Unsaturated IBC 153 ug/dL (111-343) 10/01/17 06:07 Total Bilirubin 0.2 mg/dL (0.3-1.0) L 10/02/17 06:30 Direct Bilirubin 0.10 mg/dL (0.0-0.2) 09/30/17 14:15 AST 24 U/L (13-39) 10/02/17 06:30 ALT 13 U/L (7-52) 10/02/17 06:30 Alkaline Phosphatase 63 U/L (34-104) 10/02/17 06:30 Ammonia 41 umol/L (16-53) 10/01/17 06:46 B-Natriuretic Peptide 198.0 pg/mL (5.0-100.0) H 10/01/17 06:46 Total Protein 5.8 gm/dL (6.0-8.3) L 10/02/17 06:30 Albumin 2.7 gm/dL (4.2-5.5) L 10/02/17 06:30 Globulin 3.1 gm/dL 10/02/17 06:30 Albumin/Globulin Ratio 0.9 (1.0-1.8) L 10/02/17 06:30 Triglycerides 140 mg/dL (<150) 09/30/17 14:15 Cholesterol 163 mg/dL (<200) 09/30/17 14:15 LDL Cholesterol Direct 112 mg/dL (75-193) 09/30/17 14:15 HDL Cholesterol 40 mg/dL (23-92) 09/30/17 14:15 Lipase 26 U/L (11-82) 09/30/17 14:15 TSH 0.90 uIU/ml (0.34-5.60) 10/01/17 06:46 Urine Source RANDOM 09/30/17 18:15 Urine Color YELLOW 09/30/17 18:15 Urine Clarity HAZY (CLEAR) 09/30/17 18:15 Urine pH 5.5 (4.6 - 8.0) 09/30/17 18:15 Ur Specific [place] 1.020 (1.005-1.030) 09/30/17 18:15 Urine Protein TRACE mg/dL (NEGATIVE) 09/30/17 18:15 Urine Glucose (UA) NEGATIVE mg/dL (NEGATIVE) 09/30/17 18:15 Urine Ketones TRACE mg/dL (NEGATIVE) 09/30/17 18:15 Urine Blood LARGE (NEGATIVE) H 09/30/17 18:15 Urine Nitrate NEGATIVE (NEGATIVE) 09/30/17 18:15 Urine Bilirubin NEGATIVE (NEGATIVE) 09/30/17 18:15 Urine Urobilinogen 0.2 E.U./dL (0.2 - 1.0) 09/30/17 18:15 Ur Leukocyte Esterase NEGATIVE (NEGATIVE) 09/30/17 18:15 Urine RBC 10-25 /hpf (0-5) H 09/30/17 18:15 Urine WBC 0-2 /hpf (0-5) 09/30/17 18:15 Ur Epithelial Cells RARE /lpf (FEW) 09/30/17 18:15 Urine Bacteria OCCASIONAL /hpf (NONE SEEN) 09/30/17 18:15 Vancomycin Trough 11.9 ug/mL (10-20) 10/02/17 09:00 - Physical Exam Vitals and I&O: Vital Signs Temp 98.4 F 10/02/17 12:00 Pulse 76 10/02/17 12:00 Resp 18 10/02/17 12:00 BP 112/68 10/02/17 12:00 Pulse Ox 97 10/02/17 12:00 Intake & Output 10/01/17 10/02/17 10/02/17 18:59 06:59 18:59 Intake Total 470 350 Output Total 400 Balance 470 -50 Weight (lbs) 78.925 kg 78.698 kg 78.471 kg Intake: Intake, IV Amount 350 350 Vancomycin HCl 1 gm In 250 250 Sodium Chloride 0.9% 250 ml @ 165 mls/hr IV Q12H [facility] Rx#:[id number] metroNIDAZOLE 500mg/NS 100 100 100mL 500 mg In 100 ml @ 100 mls/hr IV Q6HR [facility] Rx #:[id number] Oral 120 Output: Urine 400 Active Medications: Current Medications Amiodarone HCl (Cordarone) 200 mg PO DAILY [facility] Stop: 11/30/17 08:59 Last Admin: 10/02/17 09:25 Dose: 200 mg Ascorbic Acid (Vitamin C) 500 mg PO DAILY [facility] Stop: 11/30/17 08:59 Last Admin: 10/02/17 09:25 Dose: 500 mg Aspirin (Ecotrin) 81 mg PO DAILY [facility] Stop: 11/30/17 08:59 Last Admin: 10/02/17 09:26 Dose: 81 mg Atorvastatin Calcium (Lipitor) 10 mg PO [facility] PRN Reason: Protocol Stop: 11/30/17 20:59 Last Admin: 10/01/17 20:36 Dose: 10 mg Donepezil HCl (Aricept) 5 mg PO [facility] Stop: 11/30/17 20:59 Last Admin: 10/01/17 20:36 Dose: 5 mg Metronidazole (Flagyl) 500 mg in 100 mls @ 100 mls/hr IV Q6HR [facility] Stop: 11/30/17 01:59 Last Admin: 10/02/17 05:24 Dose: 100 mls/hr Vancomycin HCl 1 gm/ Sodium (Chloride) 250 mls @ 165 mls/hr IV Q12H [facility] Stop: 11/30/17 09:59 Last Admin: 10/02/17 09:26 Dose: 165 mls/hr Cefepime HCl 1 gm/ Sodium (Chloride) 50 mls @ 100 mls/hr IV Q8HR [facility] Stop: 12/01/17 04:59 Last Admin: 10/02/17 04:24 Dose: 100 mls/hr Lactulose (Cephulac) 20 gm PO TID [facility] Stop: 11/30/17 08:59 Last Admin: 10/02/17 09:23 Dose: 20 gm Miscellaneous (Vancomycin Iv Per Pharmacy) 1 [facility] PRN PRN PRN Reason: PROTOCOL Stop: 11/30/17 06:33 Valproate Sodium (Depakene) 500 mg PO TID [facility] Stop: 11/30/17 09:59 Last Admin: 10/02/17 09:24 Dose: 500 mg Warfarin Sodium (Coumadin Per Pharmacy) 1 [facility] PRN PRN; Protocol PRN Reason: RX MONITORING Stop: 11/30/17 12:24 General: no acute distress, well developed, well nourished HEENT: atraumatic, normocephalic, PERRLA, EOMI Neck: supple, no thyromegaly Cardiovascular: S1S2, regular Lungs: clear to auscultation bilaterally, clear to percussion Abdomen: soft, no tender, no distended Extremities: no cyanosis, no clubbing, no edema Infectious Disease Assmt/Plan - Problem List Patient Problems: All Active Problems HYPOTENSIVE EPISODE WITH ALOC (Acute) - Assessment Assessment: 1. Sepsis, septioc shock resolving. 2. Pneumonia. 3. Lactic acidosis, improved. 4. h/o DM2. 5. Schizophrenia. 6. Bipolar d/o. 7. Dementia. 8. Hypertension. 9. Hypertension, essential. 10. CAD. 11. Atrial fibrillation. - Plan Plan: Will continue the same treatment. Abx: Conitue cefepime and flagyl . DC vanco. Nutritional Asmnt/Malnutr-PDOC - Dietary Evaluation Malnutrition Findings (Please click <Entered> for more info): Nutritional Asmnt/Malnutrition Start: 10/01/17 15: 59 Text: Status: Complete Freq: Document 10/01/17 15:59 MARVIN (Rec: 10/01/17 16:27 MARVING [email or web address]) Nutritional Asmnt/Malnutrition Patient General Information Nutritional Screening High Risk Consult Diagnosis septicemia, septic shock Pertinent Medical Hx/Surgical Hx afib, CAD, CHF, HTN, hyperlipidemia, dementia, parkingson's, encephalopathy, dysphagia, s/p g tube placement, bipolar, depression , schizophrenia, DM Subjective Information Pt seen sleeping at time of visit x 2 times. Per nurse note, pt was alert but confused. Pt consumed 50% of braekfast and 25% of lunch today per EMR. Current Diet Order/ Nutrition Support [facility] soft chopped Pertinent Medications vit C, cephulac, vancomycin Pertinent Labs 10/01 Cl 113, Ca 8.2, glucose 88 Nutritional Hx/Data Height 1.83 m Height (Calculated Centimeters) 182.9 Current Weight (lbs) 78.925 kg Weight (Calculated Kilograms) 78.9 Weight (Calculated Grams) 70004.1 [place] Body Weight 178 Body Mass Index (BMI) 23.6 Weight Status Approriate GI Symptoms GI Symptoms None Last BM none Difficult in: None Skin Integrity/Comment: bruise, skin tear, pressure area Tony score 15 Current %PO Poor (25-49%) Estimated Nutritional Goals BEE in Kcals: Using Current wt Calories/Kcals/Kg 25-30 Kcals Calculated 4624-7148 Protein: Using Current wt Protein g/k-1.2 Protein Calculated 79-94 Fluid: ml 1974-237ml (1ml/kcal) Nutritional Problem 2. Problem Problem inadequate food intake Etiology possible weakness and poor appetite Signs/Symptoms: PO intake 25-50% 1. Problem Problem increased nutrition needs ( calorie and protein) Etiology increased metabolic demand Signs/Symptoms: dx of septicemia and wound Intervention/Recommendation Comments 1. Continue with current diet as ordered. If PO intake continue low, consider oral supplements. 2. Monitor PO intake, wt, labs and skin integrity 3. F/U as high risk in 2-3 days, 10/03-10/04 Expected Outcomes/Goals Expected Outcomes/Goals 1. PO intake to meet at least 75% of nutritional needs. 2. Wt stability, skin to remain intact, labs to approach WNL.
[2017-10-02] MEDS: Dabigatran Mesylate 75 mg Cap PO SCH (18:02)
[2017-10-02] MEDS: Atorvastatin Calcium 10 MG TAB PO SCH (21:00)
[2017-10-03] MEDS: metroNIDAZOLE 500mg/NS 100mL 500 MG/100 ML BAG IV SCH ×5 (01:07→23:43)
[2017-10-03] MEDS: Cefepime 1 GM in Sodium Chloride 0.9% 50 ML IV SCH ×3 (05:30→20:54)
[2017-10-03 05:44] LABS: INR 1.62 (0.5-1.4); PROTHROMBIN TIME (TEST) 17.3 SECONDS (9.5-11.5)
--- NOTE | 2017-10-03 08:09 | General Progress Note ---
Subjective - Review of Systems Service Date: 10/03/17 Subjective: Zahra was seen and examined today. Appears in good spirits. No complaints. Objective - Results Result Diagrams: 10/02/17 06:30 10/02/17 06:30 Recent Labs: Laboratory Last Values WBC 7.6 Th/cmm (4.8-10.8) 10/02/17 06:30 RBC 3.36 Mil/cmm (3.80-5.80) L 10/02/17 06:30 Hgb 10.7 gm/dL (12-16) L 10/02/17 06:30 Hct 32.3 % (41.0-60) L 10/02/17 06:30 MCV 96.3 fl (80-99) 10/02/17 06:30 MCH 32.0 pg (27.0-31.0) H 10/02/17 06:30 MCHC Differential 33.2 pg (28.0-36.0) 10/02/17 06:30 RDW 13.9 % (11.5-20.0) 10/02/17 06:30 Plt Count 189 Th/cmm (150-400) 10/02/17 06:30 MPV 9.2 fl 10/02/17 06:30 Neutrophils % 50.3 % (40.0-80.0) 10/02/17 06:30 Lymphocytes % 33.2 % (20.0-50.0) 10/02/17 06:30 Monocytes % 12.4 % (2.0-10.0) H 10/02/17 06:30 Eosinophils % 3.3 % (0.0-5.0) 10/02/17 06:30 Basophils % 0.8 % (0.0-2.0) 10/02/17 06:30 PT 17.3 SECONDS (9.5-11.5) H 10/03/17 05:10 INR 1.62 (0.5-1.4) H 10/03/17 05:10 Sodium 144 mEq/L (136-145) 10/02/17 06:30 Potassium 4.0 mEq/L (3.5-5.1) 10/02/17 06:30 Chloride 113 mEq/L (98-107) H 10/02/17 06:30 Carbon Dioxide 27.1 mEq/L (21.0-31.0) 10/02/17 06:30 Anion Gap 7.9 (7.0-16.0) 10/02/17 06:30 BUN 13 mg/dL (7-25) 10/02/17 06:30 Creatinine 0.7 mg/dL (0.7-1.3) 10/02/17 06:30 Est GFR ( Amer) TNP 10/02/17 06:30 Est GFR (Non-Af Amer) TNP 10/02/17 06:30 BUN/Creatinine Ratio 18.6 10/02/17 06:30 Glucose 87 mg/dL (70-105) 10/02/17 06:30 Whole Bld Lactic Acid 0.69 mmol/L (0.60-1.99) 10/01/17 06:46 Calcium 8.2 mg/dL (8.6-10.3) L 10/02/17 06:30 Magnesium 2.2 mg/dL (1.9-2.7) 09/30/17 14:15 Iron 31 ug/dL (38-169) L 10/01/17 06:07 TIBC 184 ug/dL (250-450) L 10/01/17 06:07 Iron Saturation 17 % (15-55) 10/01/17 06:07 Unsaturated IBC 153 ug/dL (111-343) 10/01/17 06:07 Total Bilirubin 0.2 mg/dL (0.3-1.0) L 10/02/17 06:30 Direct Bilirubin 0.10 mg/dL (0.0-0.2) 09/30/17 14:15 AST 24 U/L (13-39) 10/02/17 06:30 ALT 13 U/L (7-52) 10/02/17 06:30 Alkaline Phosphatase 63 U/L (34-104) 10/02/17 06:30 Ammonia 41 umol/L (16-53) 10/01/17 06:46 B-Natriuretic Peptide 198.0 pg/mL (5.0-100.0) H 10/01/17 06:46 Total Protein 5.8 gm/dL (6.0-8.3) L 10/02/17 06:30 Albumin 2.7 gm/dL (4.2-5.5) L 10/02/17 06:30 Globulin 3.1 gm/dL 10/02/17 06:30 Albumin/Globulin Ratio 0.9 (1.0-1.8) L 10/02/17 06:30 Triglycerides 140 mg/dL (<150) 09/30/17 14:15 Cholesterol 163 mg/dL (<200) 09/30/17 14:15 LDL Cholesterol Direct 112 mg/dL (75-193) 09/30/17 14:15 HDL Cholesterol 40 mg/dL (23-92) 09/30/17 14:15 Lipase 26 U/L (11-82) 09/30/17 14:15 TSH 0.90 uIU/ml (0.34-5.60) 10/01/17 06:46 Urine Source RANDOM 09/30/17 18:15 Urine Color YELLOW 09/30/17 18:15 Urine Clarity HAZY (CLEAR) 09/30/17 18:15 Urine pH 5.5 (4.6 - 8.0) 09/30/17 18:15 Ur Specific [place] 1.020 (1.005-1.030) 09/30/17 18:15 Urine Protein TRACE mg/dL (NEGATIVE) 09/30/17 18:15 Urine Glucose (UA) NEGATIVE mg/dL (NEGATIVE) 09/30/17 18:15 Urine Ketones TRACE mg/dL (NEGATIVE) 09/30/17 18:15 Urine Blood LARGE (NEGATIVE) H 09/30/17 18:15 Urine Nitrate NEGATIVE (NEGATIVE) 09/30/17 18:15 Urine Bilirubin NEGATIVE (NEGATIVE) 09/30/17 18:15 Urine Urobilinogen 0.2 E.U./dL (0.2 - 1.0) 09/30/17 18:15 Ur Leukocyte Esterase NEGATIVE (NEGATIVE) 09/30/17 18:15 Urine RBC 10-25 /hpf (0-5) H 09/30/17 18:15 Urine WBC 0-2 /hpf (0-5) 09/30/17 18:15 Ur Epithelial Cells RARE /lpf (FEW) 09/30/17 18:15 Urine Bacteria OCCASIONAL /hpf (NONE SEEN) 09/30/17 18:15 Vancomycin Trough 11.9 ug/mL (10-20) 10/02/17 09:00 - Physical Exam Vitals and I&O: Vital Signs Temp 98 F 10/03/17 04:00 Pulse 70 10/03/17 07:38 Resp 18 10/03/17 07:38 BP 137/94 10/03/17 04:00 Pulse Ox 98 10/03/17 07:38 Intake & Output 10/02/17 10/03/17 10/03/17 18:59 06:59 18:59 Intake Total 150 250 Output Total 350 Balance 150 -100 Weight (lbs) 78.471 kg 78.562 kg Intake: Intake, IV Amount 150 250 Cefepime 1 gm In Sodium 50 50 Chloride 0.9% 50 ml @ 100 mls/hr IV Q8HR [facility] Rx#: [id number] metroNIDAZOLE 500mg/NS 100 200 100mL 500 mg In 100 ml @ 100 mls/hr IV Q6HR [facility] Rx #:[id number] Output: Urine 350 Other: # Bowel Movements 1 Active Medications: Current Medications Amiodarone HCl (Cordarone) 200 mg PO DAILY [facility] Stop: 11/30/17 08:59 Last Admin: 10/02/17 09:25 Dose: 200 mg Ascorbic Acid (Vitamin C) 500 mg PO DAILY [facility] Stop: 11/30/17 08:59 Last Admin: 10/02/17 09:25 Dose: 500 mg Aspirin (Ecotrin) 81 mg PO DAILY [facility] Stop: 11/30/17 08:59 Last Admin: 10/02/17 09:26 Dose: 81 mg Atorvastatin Calcium (Lipitor) 10 mg PO [facility] PRN Reason: Protocol Stop: 11/30/17 20:59 Last Admin: 10/02/17 21:00 Dose: Not Given Donepezil HCl (Aricept) 5 mg PO HS [facility] Stop: 11/30/17 20:59 Last Admin: 10/02/17 22:02 Dose: 5 mg Metronidazole (Flagyl) 500 mg in 100 mls @ 100 mls/hr IV Q6HR [facility] Stop: 11/30/17 01:59 Last Admin: 10/03/17 06:03 Dose: 100 mls/hr Cefepime HCl 1 gm/ Sodium (Chloride) 50 mls @ 100 mls/hr IV Q8HR [facility] Stop: 12/01/17 04:59 Last Admin: 10/03/17 05:30 Dose: 100 mls/hr Lactulose (Cephulac) 20 gm PO TID [facility] Stop: 11/30/17 08:59 Last Admin: 10/02/17 22:02 Dose: 20 gm Valproate Sodium (Depakene) 500 mg PO TID [facility] Stop: 11/30/17 09:59 Last Admin: 10/02/17 22:01 Dose: 500 mg General: Alert, Oriented x3 HEENT: Atraumatic, PERRLA, EOMI Neck: Supple Cardiovascular: Regular rate, Normal S1, Normal S2 Lungs: Clear to auscultation Abdomen: Bowel sounds, Soft Extremities: no Clubbing, no Cyanosis, no Edema Neurological: Normal gait, Normal speech Assessment/Plan - Problem List Patient Problems: All Active Problems HYPOTENSIVE EPISODE WITH ALOC (Acute) - Assessment Assessment: Current Active Problems Problem Status Onset HYPOTENSIVE EPISODE WITH ALOC Acute Sepsis versus Urosepsis lactic acidosis hematuria posisible UTI Parkinson's Disease hyperlipidemia seizure disorder atrial fibrillation S/p G tube placement HTN DM CAD CHF dyslipidemia encephalopathy S/p pacemaker placement Schizophrenia Bipolar Disorder Dementia - Plan Plan: Blood Cultures Urine C&S continue current Antibiotic therapy per ID. ECHO CBC,CMP,TSH,BNP,Ammonia level Nutritional Asmnt/Malnutr-PDOC - Dietary Evaluation Malnutrition Findings (Please click <Entered> for more info): Nutritional Asmnt/Malnutrition Start: 10/01/17 15: 59 Text: Status: Complete Freq: Document 10/01/17 15:59 LCHENG (Rec: 10/01/17 16:27 LCHENG [email or web address]) Nutritional Asmnt/Malnutrition Patient General Information Nutritional Screening High Risk Consult Diagnosis septicemia, septic shock Pertinent Medical Hx/Surgical Hx afib, CAD, CHF, HTN, hyperlipidemia, dementia, parkingson's, encephalopathy, dysphagia, s/p g tube placement, bipolar, depression , schizophrenia, DM Subjective Information Pt seen sleeping at time of visit x 2 times. Per nurse note, pt was alert but confused. Pt consumed 50% of braekfast and 25% of lunch today per EMR. Current Diet Order/ Nutrition Support [facility] soft chopped Pertinent Medications vit C, cephulac, vancomycin Pertinent Labs 10/01 Cl 113, Ca 8.2, glucose 88 Nutritional Hx/Data Height 1.83 m Height (Calculated Centimeters) 182.9 Current Weight (lbs) 78.925 kg Weight (Calculated Kilograms) 78.9 Weight (Calculated Grams) 82726.1 [place] Body Weight 178 Body Mass Index (BMI) 23.6 Weight Status Approriate GI Symptoms GI Symptoms None Last BM none Difficult in: None Skin Integrity/Comment: bruise, skin tear, pressure area Tony score 15 Current %PO Poor (25-49%) Estimated Nutritional Goals BEE in Kcals: Using Current wt Calories/Kcals/Kg 25-30 Kcals Calculated 8610-2674 Protein: Using Current wt Protein g/k-1.2 Protein Calculated 79-94 Fluid: ml 1974-237ml (1ml/kcal) Nutritional Problem 2. Problem Problem inadequate food intake Etiology possible weakness and poor appetite Signs/Symptoms: PO intake 25-50% 1. Problem Problem increased nutrition needs ( calorie and protein) Etiology increased metabolic demand Signs/Symptoms: dx of septicemia and wound Intervention/Recommendation Comments 1. Continue with current diet as ordered. If PO intake continue low, consider oral supplements. 2. Monitor PO intake, wt, labs and skin integrity 3. F/U as high risk in 2-3 days, 10/03-10/04 Expected Outcomes/Goals Expected Outcomes/Goals 1. PO intake to meet at least 75% of nutritional needs. 2. Wt stability, skin to remain intact, labs to approach WNL.
[2017-10-03] MEDS: Lactulose 10 Gm/15 mL 30mL UDC PO SCH ×3 (09:27→21:23)
[2017-10-03] MEDS: Multivitamin w/ Minerals Tab PO SCH (09:28)
[2017-10-03] MEDS: Dabigatran Mesylate 75 mg Cap PO SCH ×2 (09:37→17:43)
--- NOTE | 2017-10-03 16:01 | Infectious Disease Prog Note ---
Infectious Disease Subjective - Review of Systems Service Date: 10/03/17 Subjective: There is no new change, no fever. Infectious Disease Objective - Results Result Diagrams: 10/02/17 06:30 10/02/17 06:30 Recent Labs: Laboratory Last Values WBC 7.6 Th/cmm (4.8-10.8) 10/02/17 06:30 RBC 3.36 Mil/cmm (3.80-5.80) L 10/02/17 06:30 Hgb 10.7 gm/dL (12-16) L 10/02/17 06:30 Hct 32.3 % (41.0-60) L 10/02/17 06:30 MCV 96.3 fl (80-99) 10/02/17 06:30 MCH 32.0 pg (27.0-31.0) H 10/02/17 06:30 MCHC Differential 33.2 pg (28.0-36.0) 10/02/17 06:30 RDW 13.9 % (11.5-20.0) 10/02/17 06:30 Plt Count 189 Th/cmm (150-400) 10/02/17 06:30 MPV 9.2 fl 10/02/17 06:30 Neutrophils % 50.3 % (40.0-80.0) 10/02/17 06:30 Lymphocytes % 33.2 % (20.0-50.0) 10/02/17 06:30 Monocytes % 12.4 % (2.0-10.0) H 10/02/17 06:30 Eosinophils % 3.3 % (0.0-5.0) 10/02/17 06:30 Basophils % 0.8 % (0.0-2.0) 10/02/17 06:30 PT 17.3 SECONDS (9.5-11.5) H 10/03/17 05:10 INR 1.62 (0.5-1.4) H 10/03/17 05:10 Sodium 144 mEq/L (136-145) 10/02/17 06:30 Potassium 4.0 mEq/L (3.5-5.1) 10/02/17 06:30 Chloride 113 mEq/L (98-107) H 10/02/17 06:30 Carbon Dioxide 27.1 mEq/L (21.0-31.0) 10/02/17 06:30 Anion Gap 7.9 (7.0-16.0) 10/02/17 06:30 BUN 13 mg/dL (7-25) 10/02/17 06:30 Creatinine 0.7 mg/dL (0.7-1.3) 10/02/17 06:30 Est GFR ( Amer) TNP 10/02/17 06:30 Est GFR (Non-Af Amer) TNP 10/02/17 06:30 BUN/Creatinine Ratio 18.6 10/02/17 06:30 Glucose 87 mg/dL (70-105) 10/02/17 06:30 Whole Bld Lactic Acid 0.69 mmol/L (0.60-1.99) 10/01/17 06:46 Calcium 8.2 mg/dL (8.6-10.3) L 10/02/17 06:30 Magnesium 2.2 mg/dL (1.9-2.7) 09/30/17 14:15 Iron 31 ug/dL (38-169) L 10/01/17 06:07 TIBC 184 ug/dL (250-450) L 10/01/17 06:07 Iron Saturation 17 % (15-55) 10/01/17 06:07 Unsaturated IBC 153 ug/dL (111-343) 10/01/17 06:07 Total Bilirubin 0.2 mg/dL (0.3-1.0) L 10/02/17 06:30 Direct Bilirubin 0.10 mg/dL (0.0-0.2) 09/30/17 14:15 AST 24 U/L (13-39) 10/02/17 06:30 ALT 13 U/L (7-52) 10/02/17 06:30 Alkaline Phosphatase 63 U/L (34-104) 10/02/17 06:30 Ammonia 41 umol/L (16-53) 10/01/17 06:46 B-Natriuretic Peptide 198.0 pg/mL (5.0-100.0) H 10/01/17 06:46 Total Protein 5.8 gm/dL (6.0-8.3) L 10/02/17 06:30 Albumin 2.7 gm/dL (4.2-5.5) L 10/02/17 06:30 Globulin 3.1 gm/dL 10/02/17 06:30 Albumin/Globulin Ratio 0.9 (1.0-1.8) L 10/02/17 06:30 Triglycerides 140 mg/dL (<150) 09/30/17 14:15 Cholesterol 163 mg/dL (<200) 09/30/17 14:15 LDL Cholesterol Direct 112 mg/dL (75-193) 09/30/17 14:15 HDL Cholesterol 40 mg/dL (23-92) 09/30/17 14:15 Lipase 26 U/L (11-82) 09/30/17 14:15 TSH 0.90 uIU/ml (0.34-5.60) 10/01/17 06:46 Urine Source RANDOM 09/30/17 18:15 Urine Color YELLOW 09/30/17 18:15 Urine Clarity HAZY (CLEAR) 09/30/17 18:15 Urine pH 5.5 (4.6 - 8.0) 09/30/17 18:15 Ur Specific [place] 1.020 (1.005-1.030) 09/30/17 18:15 Urine Protein TRACE mg/dL (NEGATIVE) 09/30/17 18:15 Urine Glucose (UA) NEGATIVE mg/dL (NEGATIVE) 09/30/17 18:15 Urine Ketones TRACE mg/dL (NEGATIVE) 09/30/17 18:15 Urine Blood LARGE (NEGATIVE) H 09/30/17 18:15 Urine Nitrate NEGATIVE (NEGATIVE) 09/30/17 18:15 Urine Bilirubin NEGATIVE (NEGATIVE) 09/30/17 18:15 Urine Urobilinogen 0.2 E.U./dL (0.2 - 1.0) 09/30/17 18:15 Ur Leukocyte Esterase NEGATIVE (NEGATIVE) 09/30/17 18:15 Urine RBC 10-25 /hpf (0-5) H 09/30/17 18:15 Urine WBC 0-2 /hpf (0-5) 09/30/17 18:15 Ur Epithelial Cells RARE /lpf (FEW) 09/30/17 18:15 Urine Bacteria OCCASIONAL /hpf (NONE SEEN) 09/30/17 18:15 Vancomycin Trough 11.9 ug/mL (10-20) 10/02/17 09:00 - Physical Exam Vitals and I&O: Vital Signs Temp 98.3 F 10/03/17 08:00 Pulse 85 10/03/17 09:28 Resp 20 10/03/17 08:00 BP 134/75 10/03/17 08:00 Pulse Ox 98 10/03/17 08:00 Intake & Output 10/02/17 10/03/17 10/03/17 18:59 06:59 18:59 Intake Total 150 300 100 Output Total 350 400 Balance 150 -50 -300 Weight (lbs) 78.471 kg 78.562 kg 78.018 kg Intake: Intake, IV Amount 150 300 100 Cefepime 1 gm In Sodium 50 100 Chloride 0.9% 50 ml @ 100 mls/hr IV Q8HR [facility] Rx#: [id number] metroNIDAZOLE 500mg/NS 100 200 100 100mL 500 mg In 100 ml @ 100 mls/hr IV Q6HR [facility] Rx #:[id number] Output: Urine 350 400 Other: # Bowel Movements 1 Active Medications: Current Medications Amiodarone HCl (Cordarone) 200 mg PO DAILY [facility] Stop: 11/30/17 08:59 Last Admin: 10/03/17 09:28 Dose: 200 mg Ascorbic Acid (Vitamin C) 500 mg PO DAILY [facility] Stop: 11/30/17 08:59 Last Admin: 10/03/17 09:28 Dose: 500 mg Aspirin (Ecotrin) 81 mg PO DAILY [facility] Stop: 11/30/17 08:59 Last Admin: 10/03/17 09:28 Dose: 81 mg Atorvastatin Calcium (Lipitor) 10 mg PO [facility] PRN Reason: Protocol Stop: 11/30/17 20:59 Last Admin: 10/02/17 21:00 Dose: Not Given Donepezil HCl (Aricept) 5 mg PO HS [facility] Stop: 11/30/17 20:59 Last Admin: 10/02/17 22:02 Dose: 5 mg Metronidazole (Flagyl) 500 mg in 100 mls @ 100 mls/hr IV Q6HR [facility] Stop: 11/30/17 01:59 Last Admin: 10/03/17 12:00 Dose: 100 mls/hr Cefepime HCl 1 gm/ Sodium (Chloride) 50 mls @ 100 mls/hr IV Q8HR [facility] Stop: 12/01/17 04:59 Last Admin: 10/03/17 15:02 Dose: 100 mls/hr Lactulose (Cephulac) 20 gm PO TID [facility] Stop: 11/30/17 08:59 Last Admin: 10/03/17 15:00 Dose: 20 gm Valproate Sodium (Depakene) 500 mg PO TID [facility] Stop: 11/30/17 09:59 Last Admin: 10/03/17 15:00 Dose: 500 mg General: no acute distress, well developed, well nourished HEENT: atraumatic, normocephalic, PERRLA, EOMI Neck: supple, no thyromegaly Cardiovascular: S1S2, regular Lungs: clear to auscultation bilaterally, clear to percussion Abdomen: soft, no tender, no distended Extremities: no cyanosis, no clubbing, no edema Neurological: awake, alert Skin: intact Infectious Disease Assmt/Plan - Problem List Patient Problems: All Active Problems HYPOTENSIVE EPISODE WITH ALOC (Acute) - Assessment Assessment: 1. Sepsis, septioc shock resolving. 2. Pneumonia. 3. Lactic acidosis, improved. 4. h/o DM2. 5. Schizophrenia. 6. Bipolar d/o. 7. Dementia. 8. Hypertension. 9. Hypertension, essential. 10. CAD. 11. Atrial fibrillation. - Plan Plan: Will continue the same treatment. Abx: Conitue cefepime and flagyl . Nutritional Asmnt/Malnutr-PDOC - Dietary Evaluation Malnutrition Findings (Please click <Entered> for more info): Nutritional Asmnt/Malnutrition Start: 10/01/17 15: 59 Text: Status: Complete Freq: Document 10/01/17 15:59 MARVIN (Rec: 10/01/17 16:27 [facility] Nutritional Asmnt/Malnutrition Patient General Information Nutritional Screening High Risk Consult Diagnosis septicemia, septic shock Pertinent Medical Hx/Surgical Hx afib, CAD, CHF, HTN, hyperlipidemia, dementia, parkingson's, encephalopathy, dysphagia, s/p g tube placement, bipolar, depression , schizophrenia, DM Subjective Information Pt seen sleeping at time of visit x 2 times. Per nurse note, pt was alert but confused. Pt consumed 50% of braekfast and 25% of lunch today per EMR. Current Diet Order/ Nutrition Support [facility] soft chopped Pertinent Medications vit C, cephulac, vancomycin Pertinent Labs 10/01 Cl 113, Ca 8.2, glucose 88 Nutritional Hx/Data Height 1.83 m Height (Calculated Centimeters) 182.9 Current Weight (lbs) 78.925 kg Weight (Calculated Kilograms) 78.9 Weight (Calculated Grams) 67384.1 [place] Body Weight 178 Body Mass Index (BMI) 23.6 Weight Status Approriate GI Symptoms GI Symptoms None Last BM none Difficult in: None Skin Integrity/Comment: bruise, skin tear, pressure area Tony score 15 Current %PO Poor (25-49%) Estimated Nutritional Goals BEE in Kcals: Using Current wt Calories/Kcals/Kg 25-30 Kcals Calculated 6389-6189 Protein: Using Current wt Protein g/k-1.2 Protein Calculated 79-94 Fluid: ml 1974-2369ml (1ml/kcal) Nutritional Problem 2. Problem Problem inadequate food intake Etiology possible weakness and poor appetite Signs/Symptoms: PO intake 25-50% 1. Problem Problem increased nutrition needs ( calorie and protein) Etiology increased metabolic demand Signs/Symptoms: dx of septicemia and wound Intervention/Recommendation Comments 1. Continue with current diet as ordered. If PO intake continue low, consider oral supplements. 2. Monitor PO intake, wt, labs and skin integrity 3. F/U as high risk in 2-3 days, 10/03-10/04 Expected Outcomes/Goals Expected Outcomes/Goals 1. PO intake to meet at least 75% of nutritional needs. 2. Wt stability, skin to remain intact, labs to approach WNL.
[2017-10-03] MEDS: Atorvastatin Calcium 10 MG TAB PO SCH (21:23)
[2017-10-04] MEDS: Cefepime 1 GM in Sodium Chloride 0.9% 50 ML IV SCH ×2 (04:25→12:33)
[2017-10-04] MEDS: metroNIDAZOLE 500mg/NS 100mL 500 MG/100 ML BAG IV SCH ×3 (05:17→18:13)
[2017-10-04 05:40] LABS: INR 2.49 (0.5-1.4); PROTHROMBIN TIME (TEST) 27.1 SECONDS (9.5-11.5)
--- NOTE | 2017-10-04 08:21 | General Progress Note ---
Subjective - Review of Systems Service Date: 10/04/17 Subjective: Zahra was seen and examined today. Resting comfortably in bed. No acute distress. No complaints. Objective - Results Result Diagrams: 10/02/17 06:30 10/02/17 06:30 Recent Labs: Laboratory Last Values WBC 7.6 Th/cmm (4.8-10.8) 10/02/17 06:30 RBC 3.36 Mil/cmm (3.80-5.80) L 10/02/17 06:30 Hgb 10.7 gm/dL (12-16) L 10/02/17 06:30 Hct 32.3 % (41.0-60) L 10/02/17 06:30 MCV 96.3 fl (80-99) 10/02/17 06:30 MCH 32.0 pg (27.0-31.0) H 10/02/17 06:30 MCHC Differential 33.2 pg (28.0-36.0) 10/02/17 06:30 RDW 13.9 % (11.5-20.0) 10/02/17 06:30 Plt Count 189 Th/cmm (150-400) 10/02/17 06:30 MPV 9.2 fl 10/02/17 06:30 Neutrophils % 50.3 % (40.0-80.0) 10/02/17 06:30 Lymphocytes % 33.2 % (20.0-50.0) 10/02/17 06:30 Monocytes % 12.4 % (2.0-10.0) H 10/02/17 06:30 Eosinophils % 3.3 % (0.0-5.0) 10/02/17 06:30 Basophils % 0.8 % (0.0-2.0) 10/02/17 06:30 PT 27.1 SECONDS (9.5-11.5) H 10/04/17 04:40 INR 2.49 (0.5-1.4) H 10/04/17 04:40 Sodium 144 mEq/L (136-145) 10/02/17 06:30 Potassium 4.0 mEq/L (3.5-5.1) 10/02/17 06:30 Chloride 113 mEq/L (98-107) H 10/02/17 06:30 Carbon Dioxide 27.1 mEq/L (21.0-31.0) 10/02/17 06:30 Anion Gap 7.9 (7.0-16.0) 10/02/17 06:30 BUN 13 mg/dL (7-25) 10/02/17 06:30 Creatinine 0.7 mg/dL (0.7-1.3) 10/02/17 06:30 Est GFR ( Amer) TNP 10/02/17 06:30 Est GFR (Non-Af Amer) TNP 10/02/17 06:30 BUN/Creatinine Ratio 18.6 10/02/17 06:30 Glucose 87 mg/dL (70-105) 10/02/17 06:30 Whole Bld Lactic Acid 0.69 mmol/L (0.60-1.99) 10/01/17 06:46 Calcium 8.2 mg/dL (8.6-10.3) L 10/02/17 06:30 Magnesium 2.2 mg/dL (1.9-2.7) 09/30/17 14:15 Iron 31 ug/dL (38-169) L 10/01/17 06:07 TIBC 184 ug/dL (250-450) L 10/01/17 06:07 Iron Saturation 17 % (15-55) 10/01/17 06:07 Unsaturated IBC 153 ug/dL (111-343) 10/01/17 06:07 Total Bilirubin 0.2 mg/dL (0.3-1.0) L 10/02/17 06:30 Direct Bilirubin 0.10 mg/dL (0.0-0.2) 09/30/17 14:15 AST 24 U/L (13-39) 10/02/17 06:30 ALT 13 U/L (7-52) 10/02/17 06:30 Alkaline Phosphatase 63 U/L (34-104) 10/02/17 06:30 Ammonia 41 umol/L (16-53) 10/01/17 06:46 B-Natriuretic Peptide 198.0 pg/mL (5.0-100.0) H 10/01/17 06:46 Total Protein 5.8 gm/dL (6.0-8.3) L 10/02/17 06:30 Albumin 2.7 gm/dL (4.2-5.5) L 10/02/17 06:30 Globulin 3.1 gm/dL 10/02/17 06:30 Albumin/Globulin Ratio 0.9 (1.0-1.8) L 10/02/17 06:30 Triglycerides 140 mg/dL (<150) 09/30/17 14:15 Cholesterol 163 mg/dL (<200) 09/30/17 14:15 LDL Cholesterol Direct 112 mg/dL (75-193) 09/30/17 14:15 HDL Cholesterol 40 mg/dL (23-92) 09/30/17 14:15 Lipase 26 U/L (11-82) 09/30/17 14:15 TSH 0.90 uIU/ml (0.34-5.60) 10/01/17 06:46 Urine Source RANDOM 09/30/17 18:15 Urine Color YELLOW 09/30/17 18:15 Urine Clarity HAZY (CLEAR) 09/30/17 18:15 Urine pH 5.5 (4.6 - 8.0) 09/30/17 18:15 Ur Specific [place] 1.020 (1.005-1.030) 09/30/17 18:15 Urine Protein TRACE mg/dL (NEGATIVE) 09/30/17 18:15 Urine Glucose (UA) NEGATIVE mg/dL (NEGATIVE) 09/30/17 18:15 Urine Ketones TRACE mg/dL (NEGATIVE) 09/30/17 18:15 Urine Blood LARGE (NEGATIVE) H 09/30/17 18:15 Urine Nitrate NEGATIVE (NEGATIVE) 09/30/17 18:15 Urine Bilirubin NEGATIVE (NEGATIVE) 09/30/17 18:15 Urine Urobilinogen 0.2 E.U./dL (0.2 - 1.0) 09/30/17 18:15 Ur Leukocyte Esterase NEGATIVE (NEGATIVE) 09/30/17 18:15 Urine RBC 10-25 /hpf (0-5) H 09/30/17 18:15 Urine WBC 0-2 /hpf (0-5) 09/30/17 18:15 Ur Epithelial Cells RARE /lpf (FEW) 09/30/17 18:15 Urine Bacteria OCCASIONAL /hpf (NONE SEEN) 09/30/17 18:15 Vancomycin Trough 11.9 ug/mL (10-20) 10/02/17 09:00 - Physical Exam Vitals and I&O: Vital Signs Temp 96.9 F 10/04/17 04:00 Pulse 80 10/04/17 07:44 Resp 18 10/04/17 07:44 BP 122/78 10/04/17 04:00 Pulse Ox 98 10/04/17 07:44 Intake & Output 10/03/17 10/04/17 10/04/17 18:59 06:59 18:59 Intake Total 250 250 Output Total 400 Balance -150 250 Weight (lbs) 78.018 kg Intake: Intake, IV Amount 250 250 Cefepime 1 gm In Sodium 50 50 Chloride 0.9% 50 ml @ 100 mls/hr IV Q8HR [facility] Rx#: [id number] metroNIDAZOLE 500mg/NS 200 200 100mL 500 mg In 100 ml @ 100 mls/hr IV Q6HR [facility] Rx #:[id number] Output: Urine 400 Active Medications: Current Medications Amiodarone HCl (Cordarone) 200 mg PO DAILY [facility] Stop: 11/30/17 08:59 Last Admin: 10/03/17 09:28 Dose: 200 mg Ascorbic Acid (Vitamin C) 500 mg PO DAILY [facility] Stop: 11/30/17 08:59 Last Admin: 10/03/17 09:28 Dose: 500 mg Aspirin (Ecotrin) 81 mg PO DAILY [facility] Stop: 11/30/17 08:59 Last Admin: 10/03/17 09:28 Dose: 81 mg Atorvastatin Calcium (Lipitor) 10 mg PO [facility] PRN Reason: Protocol Stop: 11/30/17 20:59 Last Admin: 10/03/17 21:23 Dose: 10 mg Donepezil HCl (Aricept) 5 mg PO [facility] Stop: 11/30/17 20:59 Last Admin: 10/03/17 21:23 Dose: 5 mg Metronidazole (Flagyl) 500 mg in 100 mls @ 100 mls/hr IV Q6HR [facility] Stop: 11/30/17 01:59 Last Admin: 10/04/17 05:17 Dose: 100 mls/hr Cefepime HCl 1 gm/ Sodium (Chloride) 50 mls @ 100 mls/hr IV Q8HR [facility] Stop: 12/01/17 04:59 Last Admin: 10/04/17 04:25 Dose: 100 mls/hr Lactulose (Cephulac) 20 gm PO TID [facility] Stop: 11/30/17 08:59 Last Admin: 10/03/17 21:23 Dose: 20 gm Valproate Sodium (Depakene) 500 mg PO TID [facility] Stop: 11/30/17 09:59 Last Admin: 10/03/17 21:23 Dose: 500 mg General: Alert, Oriented x3 HEENT: Atraumatic, PERRLA, EOMI Neck: Supple Cardiovascular: Regular rate, Normal S1, Normal S2 Lungs: Clear to auscultation Abdomen: Bowel sounds, Soft Extremities: no Clubbing, no Cyanosis, no Edema Neurological: Normal gait, Normal speech Assessment/Plan - Problem List Patient Problems: All Active Problems HYPOTENSIVE EPISODE WITH ALOC (Acute) - Assessment Assessment: Current Active Problems Problem Status Onset HYPOTENSIVE EPISODE WITH ALOC Acute Sepsis versus Urosepsis lactic acidosis hematuria posisble UTI Parkinson's Disease hyperlipidemia seizure disorder atrial fibrillation S/p G tube placement HTN DM CAD CHF dyslipidemia encephalopathy S/p pacemaker placement Schizophrenia Bipolar Disorder Dementia - Plan Plan: Blood Cultures Urine C&S ID Consult Dr Marlon Grewal Cardiology Consult Dr. Mikal Grewal ECHO CBC,CMP,TSH,BNP,Ammonia level Will continue home meds. Nutritional Asmnt/Malnutr-PDOC - Dietary Evaluation Malnutrition Findings (Please click <Entered> for more info): Nutritional Asmnt/Malnutrition Start: 10/01/17 15: 59 Text: Status: Complete Freq: Document 10/01/17 15:59 LCHENG (Rec: 10/01/17 16:27 LCHENG [email or web address]) Nutritional Asmnt/Malnutrition Patient General Information Nutritional Screening High Risk Consult Diagnosis septicemia, septic shock Pertinent Medical Hx/Surgical Hx afib, CAD, CHF, HTN, hyperlipidemia, dementia, parkingson's, encephalopathy, dysphagia, s/p g tube placement, bipolar, depression , schizophrenia, DM Subjective Information Pt seen sleeping at time of visit x 2 times. Per nurse note, pt was alert but confused. Pt consumed 50% of braekfast and 25% of lunch today per EMR. Current Diet Order/ Nutrition Support [facility] soft chopped Pertinent Medications vit C, cephulac, vancomycin Pertinent Labs 10/01 Cl 113, Ca 8.2, glucose 88 Nutritional Hx/Data Height 1.83 m Height (Calculated Centimeters) 182.9 Current Weight (lbs) 78.925 kg Weight (Calculated Kilograms) 78.9 Weight (Calculated Grams) 88845.1 [place] Body Weight 178 Body Mass Index (BMI) 23.6 Weight Status Approriate GI Symptoms GI Symptoms None Last BM none Difficult in: None Skin Integrity/Comment: bruise, skin tear, pressure area Tony score 15 Current %PO Poor (25-49%) Estimated Nutritional Goals BEE in Kcals: Using Current wt Calories/Kcals/Kg 25-30 Kcals Calculated 4515-3446 Protein: Using Current wt Protein g/k-1.2 Protein Calculated 79-94 Fluid: ml 1974-237ml (1ml/kcal) Nutritional Problem 2. Problem Problem inadequate food intake Etiology possible weakness and poor appetite Signs/Symptoms: PO intake 25-50% 1. Problem Problem increased nutrition needs ( calorie and protein) Etiology increased metabolic demand Signs/Symptoms: dx of septicemia and wound Intervention/Recommendation Comments 1. Continue with current diet as ordered. If PO intake continue low, consider oral supplements. 2. Monitor PO intake, wt, labs and skin integrity 3. F/U as high risk in 2-3 days, 10/03-10/04 Expected Outcomes/Goals Expected Outcomes/Goals 1. PO intake to meet at least 75% of nutritional needs. 2. Wt stability, skin to remain intact, labs to approach WNL.
[2017-10-04] MEDS: Dabigatran Mesylate 75 mg Cap PO SCH ×2 (09:23→18:13)
[2017-10-04] MEDS: Lactulose 10 Gm/15 mL 30mL UDC PO SCH ×2 (09:23→15:18)
[2017-10-04] MEDS: Multivitamin w/ Minerals Tab PO SCH (09:23)
--- NOTE | 2017-10-04 14:52 | Infectious Disease Prog Note ---
Infectious Disease Subjective - Review of Systems Service Date: 10/04/17 Subjective: There is no new change, no fever. Infectious Disease Objective - Results Result Diagrams: 10/02/17 06:30 10/02/17 06:30 Recent Labs: Laboratory Last Values WBC 7.6 Th/cmm (4.8-10.8) 10/02/17 06:30 RBC 3.36 Mil/cmm (3.80-5.80) L 10/02/17 06:30 Hgb 10.7 gm/dL (12-16) L 10/02/17 06:30 Hct 32.3 % (41.0-60) L 10/02/17 06:30 MCV 96.3 fl (80-99) 10/02/17 06:30 MCH 32.0 pg (27.0-31.0) H 10/02/17 06:30 MCHC Differential 33.2 pg (28.0-36.0) 10/02/17 06:30 RDW 13.9 % (11.5-20.0) 10/02/17 06:30 Plt Count 189 Th/cmm (150-400) 10/02/17 06:30 MPV 9.2 fl 10/02/17 06:30 Neutrophils % 50.3 % (40.0-80.0) 10/02/17 06:30 Lymphocytes % 33.2 % (20.0-50.0) 10/02/17 06:30 Monocytes % 12.4 % (2.0-10.0) H 10/02/17 06:30 Eosinophils % 3.3 % (0.0-5.0) 10/02/17 06:30 Basophils % 0.8 % (0.0-2.0) 10/02/17 06:30 PT 27.1 SECONDS (9.5-11.5) H 10/04/17 04:40 INR 2.49 (0.5-1.4) H 10/04/17 04:40 Sodium 144 mEq/L (136-145) 10/02/17 06:30 Potassium 4.0 mEq/L (3.5-5.1) 10/02/17 06:30 Chloride 113 mEq/L (98-107) H 10/02/17 06:30 Carbon Dioxide 27.1 mEq/L (21.0-31.0) 10/02/17 06:30 Anion Gap 7.9 (7.0-16.0) 10/02/17 06:30 BUN 13 mg/dL (7-25) 10/02/17 06:30 Creatinine 0.7 mg/dL (0.7-1.3) 10/02/17 06:30 Est GFR ( Amer) TNP 10/02/17 06:30 Est GFR (Non-Af Amer) TNP 10/02/17 06:30 BUN/Creatinine Ratio 18.6 10/02/17 06:30 Glucose 87 mg/dL (70-105) 10/02/17 06:30 Whole Bld Lactic Acid 0.69 mmol/L (0.60-1.99) 10/01/17 06:46 Calcium 8.2 mg/dL (8.6-10.3) L 10/02/17 06:30 Magnesium 2.2 mg/dL (1.9-2.7) 09/30/17 14:15 Iron 31 ug/dL (38-169) L 10/01/17 06:07 TIBC 184 ug/dL (250-450) L 10/01/17 06:07 Iron Saturation 17 % (15-55) 10/01/17 06:07 Unsaturated IBC 153 ug/dL (111-343) 10/01/17 06:07 Total Bilirubin 0.2 mg/dL (0.3-1.0) L 10/02/17 06:30 Direct Bilirubin 0.10 mg/dL (0.0-0.2) 09/30/17 14:15 AST 24 U/L (13-39) 10/02/17 06:30 ALT 13 U/L (7-52) 10/02/17 06:30 Alkaline Phosphatase 63 U/L (34-104) 10/02/17 06:30 Ammonia 41 umol/L (16-53) 10/01/17 06:46 B-Natriuretic Peptide 198.0 pg/mL (5.0-100.0) H 10/01/17 06:46 Total Protein 5.8 gm/dL (6.0-8.3) L 10/02/17 06:30 Albumin 2.7 gm/dL (4.2-5.5) L 10/02/17 06:30 Globulin 3.1 gm/dL 10/02/17 06:30 Albumin/Globulin Ratio 0.9 (1.0-1.8) L 10/02/17 06:30 Triglycerides 140 mg/dL (<150) 09/30/17 14:15 Cholesterol 163 mg/dL (<200) 09/30/17 14:15 LDL Cholesterol Direct 112 mg/dL (75-193) 09/30/17 14:15 HDL Cholesterol 40 mg/dL (23-92) 09/30/17 14:15 Lipase 26 U/L (11-82) 09/30/17 14:15 TSH 0.90 uIU/ml (0.34-5.60) 10/01/17 06:46 Urine Source RANDOM 09/30/17 18:15 Urine Color YELLOW 09/30/17 18:15 Urine Clarity HAZY (CLEAR) 09/30/17 18:15 Urine pH 5.5 (4.6 - 8.0) 09/30/17 18:15 Ur Specific [place] 1.020 (1.005-1.030) 09/30/17 18:15 Urine Protein TRACE mg/dL (NEGATIVE) 09/30/17 18:15 Urine Glucose (UA) NEGATIVE mg/dL (NEGATIVE) 09/30/17 18:15 Urine Ketones TRACE mg/dL (NEGATIVE) 09/30/17 18:15 Urine Blood LARGE (NEGATIVE) H 09/30/17 18:15 Urine Nitrate NEGATIVE (NEGATIVE) 09/30/17 18:15 Urine Bilirubin NEGATIVE (NEGATIVE) 09/30/17 18:15 Urine Urobilinogen 0.2 E.U./dL (0.2 - 1.0) 09/30/17 18:15 Ur Leukocyte Esterase NEGATIVE (NEGATIVE) 09/30/17 18:15 Urine RBC 10-25 /hpf (0-5) H 09/30/17 18:15 Urine WBC 0-2 /hpf (0-5) 09/30/17 18:15 Ur Epithelial Cells RARE /lpf (FEW) 09/30/17 18:15 Urine Bacteria OCCASIONAL /hpf (NONE SEEN) 09/30/17 18:15 Vancomycin Trough 11.9 ug/mL (10-20) 10/02/17 09:00 - Physical Exam Vitals and I&O: Vital Signs Temp 98.9 F 10/04/17 11:53 Pulse 78 10/04/17 11:53 Resp 20 10/04/17 11:53 BP 139/81 10/04/17 11:53 Pulse Ox 98 10/04/17 11:53 Intake & Output 10/03/17 10/04/17 10/04/17 18:59 06:59 18:59 Intake Total 250 400 Output Total 400 Balance -150 400 Weight (lbs) 78.018 kg 78.018 kg Intake: Intake, IV Amount 250 400 Cefepime 1 gm In Sodium 50 100 Chloride 0.9% 50 ml @ 100 mls/hr IV Q8HR [facility] Rx#: [id number] metroNIDAZOLE 500mg/NS 200 300 100mL 500 mg In 100 ml @ 100 mls/hr IV Q6HR [facility] Rx #:[id number] Output: Urine 400 Active Medications: Current Medications Amiodarone HCl (Cordarone) 200 mg PO DAILY [facility] Stop: 11/30/17 08:59 Last Admin: 10/04/17 09:23 Dose: 200 mg Ascorbic Acid (Vitamin C) 500 mg PO DAILY [facility] Stop: 11/30/17 08:59 Last Admin: 10/04/17 09:23 Dose: 500 mg Aspirin (Ecotrin) 81 mg PO DAILY [facility] Stop: 11/30/17 08:59 Last Admin: 10/04/17 09:23 Dose: 81 mg Atorvastatin Calcium (Lipitor) 10 mg PO [facility] PRN Reason: Protocol Stop: 11/30/17 20:59 Last Admin: 10/03/17 21:23 Dose: 10 mg Donepezil HCl (Aricept) 5 mg PO HS [facility] Stop: 11/30/17 20:59 Last Admin: 10/03/17 21:23 Dose: 5 mg Metronidazole (Flagyl) 500 mg in 100 mls @ 100 mls/hr IV Q6HR [facility] Stop: 11/30/17 01:59 Last Admin: 10/04/17 12:31 Dose: 100 mls/hr Cefepime HCl 1 gm/ Sodium (Chloride) 50 mls @ 100 mls/hr IV Q8HR [facility] Stop: 12/01/17 04:59 Last Admin: 10/04/17 12:33 Dose: 100 mls/hr Lactulose (Cephulac) 20 gm PO TID [facility] Stop: 11/30/17 08:59 Last Admin: 10/04/17 09:23 Dose: 20 gm Valproate Sodium (Depakene) 500 mg PO TID [facility] Stop: 11/30/17 09:59 Last Admin: 10/04/17 09:23 Dose: 500 mg General: no acute distress, well developed, well nourished HEENT: atraumatic, normocephalic, PERRLA Neck: supple, no thyromegaly Cardiovascular: S1S2, regular Lungs: clear to auscultation bilaterally, clear to percussion Abdomen: soft, no tender, no distended Extremities: no cyanosis, no clubbing, no edema Neurological: awake, alert, oriented Skin: intact Infectious Disease Assmt/Plan - Problem List Patient Problems: All Active Problems HYPOTENSIVE EPISODE WITH ALOC (Acute) - Assessment Assessment: 1. Sepsis, septioc shock resolving. 2. Pneumonia. 3. Lactic acidosis, improved. 4. h/o DM2. 5. Schizophrenia. 6. Bipolar d/o. 7. Dementia. 8. Hypertension. 9. Hypertension, essential. 10. CAD. 11. Atrial fibrillation. - Plan Plan: Will continue the same treatment. Abx: Conitue cefepime and flagyl . Dc plan is initiated. Nutritional Asmnt/Malnutr-PDOC - Dietary Evaluation Malnutrition Findings (Please click <Entered> for more info): Nutritional Asmnt/Malnutrition Start: 10/01/17 15: 59 Text: Status: Complete Freq: Document 10/01/17 15:59 LCHENG (Rec: 10/01/17 16:27 LCHENG [email or web address]) Nutritional Asmnt/Malnutrition Patient General Information Nutritional Screening High Risk Consult Diagnosis septicemia, septic shock Pertinent Medical Hx/Surgical Hx afib, CAD, CHF, HTN, hyperlipidemia, dementia, parkingson's, encephalopathy, dysphagia, s/p g tube placement, bipolar, depression , schizophrenia, DM Subjective Information Pt seen sleeping at time of visit x 2 times. Per nurse note, pt was alert but confused. Pt consumed 50% of braekfast and 25% of lunch today per EMR. Current Diet Order/ Nutrition Support [facility] soft chopped Pertinent Medications vit C, cephulac, vancomycin Pertinent Labs 10/01 Cl 113, Ca 8.2, glucose 88 Nutritional Hx/Data Height 1.83 m Height (Calculated Centimeters) 182.9 Current Weight (lbs) 78.925 kg Weight (Calculated Kilograms) 78.9 Weight (Calculated Grams) 41740.1 [place] Body Weight 178 Body Mass Index (BMI) 23.6 Weight Status Approriate GI Symptoms GI Symptoms None Last BM none Difficult in: None Skin Integrity/Comment: bruise, skin tear, pressure area Tony score 15 Current %PO Poor (25-49%) Estimated Nutritional Goals BEE in Kcals: Using Current wt Calories/Kcals/Kg 25-30 Kcals Calculated 6879-9634 Protein: Using Current wt Protein g/k-1.2 Protein Calculated 79-94 Fluid: ml 1974-2369ml (1ml/kcal) Nutritional Problem 2. Problem Problem inadequate food intake Etiology possible weakness and poor appetite Signs/Symptoms: PO intake 25-50% 1. Problem Problem increased nutrition needs ( calorie and protein) Etiology increased metabolic demand Signs/Symptoms: dx of septicemia and wound Intervention/Recommendation Comments 1. Continue with current diet as ordered. If PO intake continue low, consider oral supplements. 2. Monitor PO intake, wt, labs and skin integrity 3. F/U as high risk in 2-3 days, 10/03-10/04 Expected Outcomes/Goals Expected Outcomes/Goals 1. PO intake to meet at least 75% of nutritional needs. 2. Wt stability, skin to remain intact, labs to approach WNL.
--- NOTE | 2017-10-07 20:38 | Discharge Summary ---
DATE OF DISCHARGE: 10/04/2017 PRELIMINARY DIAGNOSES: 1. Lactic acidosis. 2. Hematuria. 3. Possible urinary tract infection. 4. Parkinson's disease. 5. Hyperlipidemia. 6. Seizure disorder. 7. Atrial fibrillation. 8. Status post G-tube placement. 9. Hypertension. 10. Diabetes mellitus. 11. Coronary artery disease. 12. Congestive heart failure. 13. Dyslipidemia. 14. Encephalopathy. 15. Status post pacemaker placement. 16. Schizophrenia 17. Bipolar disorder. 18. Dementia. DISCHARGE DIAGNOSES: 1. Lactic acidosis, now resolved. 2. Parkinson's disease. 3. Urinary tract infection. 4. Hyperlipidemia. 5. Seizure disorder. 6. Atrial fibrillation. 7. Status post G-tube placement. 8. Hypertension. 9. Diabetes. 10. Coronary artery disease. 11. Congestive heart failure. 12. Encephalopathy. 13. Status post pacemaker placement. 14. Schizophrenia. 15. Bipolar disorder. 16. Dementia. BRIEF HISTORY OF PRESENT ILLNESS: This is a 72-year-old male who was initially transferred to [facility] ER from [facility] for decreased wakefulness, increased fatigue, and hypertension noted at the [facility]. The patient has a previous history of Parkinson's disease, hyperlipidemia, seizure disorder, atrial fibrillation, NG tube placement, also has a history of hypertension, diabetes mellitus, coronary artery disease, congestive heart failure. LABORATORY DATA: While in the ER, his initial lab work revealed a lactic acid level of 5.85. White count was 10.3, hemoglobin was 14.1, hematocrit 43.1, and platelets 233,000. His neutrophils were 88, lymphocytes 8, monocytes 8, eosinophils 0.3, baso of 0.4. Sodium was 141, potassium 3.8, BUN 26, creatinine 1.3. The patient was subsequently admitted for possible sepsis versus urosepsis, lactic acidosis, and hematuria. HOSPITAL COURSE: The patient improved during his hospital stay, was seen and evaluated by Dr. Mikal Grewal for Cardiology. Please see dictated report. He was also seen by ID, Dr. Marlon Grewal. Please see dictated report. The patient's initial lactic acid level was noted to be elevated at 5. This improved during his hospital stay. The patient was initially treated with aggressive IV antibiotics, subsequently was seen and evaluated by ID which the patient then switched over to a combination of antibiotics. His overall health improved and then was subsequently discharged in stable condition to the assisted and to continue current medications. JOB# [id number]
== END 2017-10-04 20:45 | DRG 871 ==
LOC: ER 13:47 → MSI 23:50
PROVIDERS: ADMIT Family Medicine; ATTEND Family Medicine
DX: A41.9 Sepsis, unspecified organism (principal); G93.40 Encephalopathy, unspecified; R65.21 Severe sepsis with septic shock; K65.9 Peritonitis, unspecified; E46 Unspecified protein-calorie malnutrition; I11.0 Hypertensive heart disease with heart failure; J18.9 Pneumonia, unspecified organism; G20 Parkinson's disease; I50.20 Unspecified systolic (congestive) heart failure; N39.0 Urinary tract infection, site not specified; J44.0 Chronic obstructive pulmonary disease with (acute) lower respiratory infection; I48.91 Unspecified atrial fibrillation; E11.9 Type 2 diabetes mellitus without complications; F20.9 Schizophrenia, unspecified; E78.5 Hyperlipidemia, unspecified; G40.909 Epilepsy, unspecified, not intractable, without status epilepticus; Z60.2 Problems related to living alone; R31.9 Hematuria, unspecified; G30.9 Alzheimer's disease, unspecified; E55.9 Vitamin D deficiency, unspecified; F31.9 Bipolar disorder, unspecified; R13.10 Dysphagia, unspecified; F02.80 Dementia in other diseases classified elsewhere, unspecified severity, without behavioral disturbance, psychotic disturbance, mood disturbance, and anxiety; I25.10 Atherosclerotic heart disease of native coronary artery without angina pectoris; Z93.1 Gastrostomy status; Z95.0 Presence of cardiac pacemaker; Z82.49 Family history of ischemic heart disease and other diseases of the circulatory system; Z68.23 Body mass index [BMI] 23.0-23.9, adult; Z23 Encounter for immunization; Z79.82 Long term (current) use of aspirin; Z79.899 Other long term (current) drug therapy
CPT/HCPCS: 36415-UA; 71045-TC; 80048-TC; 80053-TC; 80061-TC; 80076-TC; 80202-TC; 81001-TC; 82140-TC; 83540-90; 83550-90; 83605; 83690-TC; 83735-TC; 83880-TC; 84443-TC; 85025-TC; 85610-TC; 90799; 93005; 93307-TC; 94760; A4217; J0692; J0696; J0744; J3370; J7030; J7040; Z7610